=== PATIENT | female | born 1985 | race Caucasian/White ===

== ENCOUNTER 2022-04-12 08:12 | Emergency (ER) | payer OTHER, SELFPAY ==
--- NOTE | 2022-04-12 08:13 | ED.SKABFB ---
HPI - Skin/Abscess/Foreign Bdy General Chief complaint: Skin/Abscess/Foreign Body Stated complaint: Rash all over Time Seen by Provider: 04/12/22 08:13 Source: patient Mode of arrival: ambulatory Limitations: no limitations History of Present Illness HPI narrative: Angelika is a 36-year-old female patient presenting to the clinic today with complaints of rash all over her body. She reports the rash started approximately 3 days ago after being in a hot tub the night before. She contacted her PCP and they gave her a prescription for 50 mg of prednisone daily. She has taken 2 total doses and has not found any relief. She reports that it is itching and burning. She denies being out in the [place] or any other environmental changes with detergents or soaps. She denies any new foods or medications. She denies anyone in the family having this type of a rash. She denies any fever or chills Related Data Home Medications Medication Instructions Recorded Confirmed etonogestrel 0.12 mg-ethinyl 1 vag ring vaginal MONTHLY 04/12/22 04/12/22 estradiol 0.015 mg/24 hr vaginal ring (NuvaRing) Allergies Allergy/AdvReac Type Severity Reaction Status Date / Time No Known Allergies Allergy Verified 04/12/22 08:32 Review of Systems Review of Systems: Pertinent positives per HPI. Patient denies any fever, chills, headache, visual changes, dizziness, cough, runny nose, sore throat, shortness of breath, chest pain, palpitations, nausea, vomiting, diarrhea, constipation, abdominal pain, or any urinary issues. PMFSH Family History Family History Grandparent Cerebrovascular accident Family history of malignant neoplasm of stomach Family history of heart disease in male family member before age 55 Diabetes mellitus Other Family history of lung cancer Social History Social History Smoking end date: 11/05/03 Alcohol intake: current Comments At the time of my signature, I reviewed and agree with the nursing past medical, surgical, social, and family history. There is no relevant family history pertinent to the patient complaint. Exam Narrative: General: Well-developed, well nourished, in no apparent distress Head: Normocephalic, atraumatic. Cardio: Regular rate and rhythm, s1 and s2 normal, no murmur appreciated. Resp: Clear to auscultation bilaterally, no rhonchi, rales, wheezing or rubs. Integumentary: [place], warm, and dry, intact without lesion, red, raised, papular, pustular, itchy rash in her arms, neck, face/forehead, back and chest. Course Course Emergency Course: Portions of this record may have been created with voice recognition software. Level of Care: Express Care Visit Vital Signs Vital signs: Vital signs reviewed MDM - Skin/Abscess/Foreign Bdy MDM Narrative Medical decision making narrative: At the time of assessment patient is resting comfortably on the exam table. She has red raised papular pustular like rash around the hair follicles. She had been recently in a hot tub prior to this eruption. I suspect the patient has hot tub folliculitis and will treat with a prescription for Cipro and also doxycycline to cover any staph related infection. Supportive measures were discussed and patient voiced understanding of discharge instructions and agrees to treatment plan. Differential Diagnosis Differential diagnosis: Likely abscess of skin or subcutaneous tissue, viral exanthem, urticaria, cellulitis, eczema, insect bites, contact dermatitis and other (Folliculitis) Discharge Plan Discharge Clinical Impression: Folliculitis Patient Disposition: Home, Self-Care Condition: Stable Instructions: Antibiotic Form, Folliculitis (ED) Additional Instructions: Take doxycycline and Cipro as prescribed May eat 1 cup of yogurt daily 2 hours before or after taking the antibiotic
[2022-04-12 08:24] VITALS: BP 139/79; PULSE 79; RESP 16; TEMP 36.8; O2SAT 98
== END 2022-04-12 09:01 | disposition home or self-care (01) ==
PROVIDERS: Emergency Provider Nurse Practitioner Family; PCP Hospitalist
DX: L73.9 Follicular disorder, unspecified (principal); Z87.891 Personal history of nicotine dependence
CPT/HCPCS: 99203; G0463

== ENCOUNTER 2023-12-11 01:47 | Day surgery (SDC) | payer OTHER, SELFPAY ==
[2023-11-29 10:59] VITALS: BMI 30.5
--- NOTE | 2023-11-29 11:06 | PC.NURSE ---
Report to the Outpatient Waiting Room, entrance under the green pavilion located off [facility], at 0600 on 12-11-23. Planned Procedure Time: 0730. Time changes happen often and if your time is changed the preop area will call you the afternoon before. - You and your visitor will be asked to self-screen and do not enter if you have any COVID symptoms. - A mask is optional within the hospital at this time. Patients may have clear liquids (water, carbonated beverages, clear teas, apple juice) until 3 hours prior to surgery with a maximum of 20 ounces. 0430 - No food from midnight until time of surgery - Infants may have breast milk until 4 hours before surgery, formula 6 hours prior to surgery. - Children will be allowed to drink immediately following surgery. If applicable, please bring a bottle or sippy cup to assist with drinking. Juice, water, soda, and popsicles are readily available. For infants on formula, please bring formula the day of surgery. Pacifiers are allowed. Take the following medications with a SIP of water the morning of surgery: None DO NOT STOP ANY OF YOUR OTHER PRESCRIPTION MEDICATIONS PRIOR TO SURGERY ?EXCEPT THE FOLLOWING Medications to discontinue per physician: N/A Please no make-up, nail malay, hairspray, perfume, deodorant, or body powder the day of surgery. No jewelry (including any body piercings) or valuables the day of surgery, leave them at home. Please take a shower or bath the night before, or the morning of, surgery with an antibacterial soap. Wear comfortable, loose fitting clothing. Children are encouraged to wear pajamas. - Jewelry must be removed prior to entering the operating room. Rings and piercings that are not removed may be cut off. - The hospital will not accept responsibility for valuables. - Please leave all valuables, including medications, at home the day of surgery. If you are going home after surgery, a licensed recycler forklift driver truck driver must drive you home. - NO public transportation without another adult if you receive anesthesia. - We recommend that an adult stay with you for 24 hours following discharge. - We also recommend that you do not drive, make important decision, drink alcoholic beverages, or take any drugs that were not prescribed by your health care provider for at least 24 hours after your discharge time. For Pediatric surgeries, we recommend two adults accompany the child home. Follow any additional instructions given to you from your surgeon. If you or anyone in your household have experienced Covid symptoms in the past week, please notify your surgeon or the nurse liaison at the phone number below for possible testing. Telephone instructions given to Angelika Stinson and asked if any additional questions and then verbalized understanding. Patient advised to call surgeon office or pre surgery nurse liaison [phone] if any additional questions.
[2023-12-11] VITALS (7 sets, daily range): BP systolic 108–131; BP diastolic 75–85; PULSE 62–84; RESP 14–20; TEMP 36.2–36.8; O2SAT 100
[2023-12-11] MEDS: ACETAMINOPHEN 500 MG TABLET 1000 MG PO (06:30)
[2023-12-11] MEDS: LACTATED RINGERS 1,000 ML 30 ML IV CONT ×2 (06:30→09:01)
[2023-12-11] MEDS: SCOPOLAMINE 1 MG PATCH 1 PATCH TRANSDERM (06:30)
[2023-12-11] MEDS: KETOROLAC 15 MG/ML VIAL (*BKC) IV PUSH (06:30)
--- NOTE | 2023-12-11 06:34 | WPDANESEPPF ---
Anes - Initial Pre Proc Eval Procedure: Operation Date: 12/11/23 07:30 Proposed Procedures p Endocervical Curettage, Hysteroscopy with Pari Endometrial Ablation, Laparoscopic Bilateral Salpingectomy - Panda Cantor MD Date/Time: 12/11/23 06:34 Surgeon: Panda Cantor MD Pre Op Diagnosis: Lump of Cervix,Menorrhagia,Female Sterilization Patient Data Age: 38 Gender: F Height: 1.83 m Weight: 102.06 kg Allergies Allergy/AdvReac Type Severity Reaction Status Date / Time No Known Allergies Allergy Verified 11/29/23 10:36 Home Medications Medication Instructions Recorded Confirmed Type etonogestrel 0.12 mg-ethinyl 1 vag ring vaginal MONTHLY 04/12/22 11/29/23 History estradiol 0.015 mg/24 hr vaginal ring (NuvaRing) oseltamivir 75 mg capsule (Tamiflu) 75 mg PO DAILY 11/29/23 11/29/23 History Patient hx anesthesia problems: none Family hx anesthesia problems: none Results Review: All pre-operative results and documents have been reviewed as part of the pre-operative evaluation. [facility] Past Medical History Medical History (Updated 12/11/23 @ 06:36 by Taran Charles MD) Obesity Surgical History Surgical History (Updated 12/11/23 @ 06:36 by Taran Charles MD) H/O arthroscopic knee surgery Family History Family History Grandparent Cerebrovascular accident Family history of malignant neoplasm of stomach Family history of heart disease in male family member before age 55 Diabetes mellitus Other Family history of lung cancer Social History Social History Years smoked: 3 Smoking status: Former smoker Tobacco type: cigarettes Second hand tobacco smoke exposure: No Smoking end date: 11/05/03 Alcohol intake: current Alcohol use details: once a month maybe Substance use: never Substance use type: does not use Living arrangements: with family Spiritual care concerns: No Anes - Eval Final PreProcedure Day of Procedure 12/11/23 06:34 Patient weight: obese Heart: regular rate and rhythm Lungs: clear to auscultation Airway: Mallampati scale class 1 Neurological: alert and oriented Last oral intake: >/= 8 hours ASA classification: II Emergent: no Anesthetic plan: proceed Anesthesia type and monitoring: general ETT and standard monitoring Results Review: All pre-operative results and documents have been reviewed as part of the pre-operative evaluation. Informed Consent: The patient's anesthetic plan and its attendant risks and benefits were discussed with the patient/family/POA. Questions were solicited and answers provided to the satisfaction of the patient/family/POA.
--- NOTE | 2023-12-11 07:18 | PM.IMHP ---
H&P: HPI History of Present Illness Date/Time: 12/11/23 07:18 Chief Complaint: menorrhagia Narrative: this patient is a 38-year-old female with severe menorrhagia and possible endocervical lesion. We have agreed to perform hysteroscopy D&C with endometrial ablation, bilateral salpingectomy, possible resection of a cervical lesion. She understands the procedure. Is been explained to her in detail. She understands the risk. She understands that injuries may occur that resulted in hospitalization, more surgery, and severe illness. She understands risk of hemorrhage. She denies any nausea, vomiting, fever, chills. She denies any chest pain or shortness of breath. Review of Systems Review of Systems: All systems reviewed & are unremarkable except as noted in HPI and below Constitutional: Constitutional: Denies chills, Denies fatigue, Denies fever(s) and Denies weakness Eyes: Eyes: Denies blurry vision, Denies change in vision, Denies loss of peripheral vision, Denies loss of vision, Denies other visual disturbances and Denies eye pain ENT: Denies vertigo, Denies dizziness, Denies hearing loss, Denies mouth pain, Denies nasal obstruction, Denies neck mass and Denies neck pain Cardiovascular: Cardiovascular: Denies chest pain, Denies diaphoresis, Denies syncope, Denies leg edema and Denies dyspnea Respiratory: Respiratory: Denies chest congestion, Denies cough, Denies hemoptysis, Denies dyspnea and Denies wheezing Gastrointestinal: Gastrointestinal: Denies abdominal pain, Denies constipation, Denies diarrhea, Denies nausea and Denies vomiting Genitourinary: Genitourinary: Denies hematuria, Denies change in libido, Denies nocturia, Denies genital lesions, Denies flank pain and Denies urinary urgency Musculoskeletal: Musculoskeletal: Denies abnormal gait, Denies back pain, Denies myalgias, Denies arthralgias, Denies joint swelling, Denies muscle weakness and Denies neck pain Integumentary/Breasts: Skin/Breast: Denies swelling, Denies breast pain, Denies breast mass, Denies dry skin, Denies nipple discharge, Denies unusual bruising and Denies jaundice Neurologic: Denies Neuro-related abnormal movements, Denies Abnormal speech present, Denies abnormal gait, Denies behavioral changes, Denies confusion, Denies vertigo, Denies dizziness, Denies syncope, Denies loss of vision, Denies memory loss, Denies convulsions and Denies weakness Psychiatric: Psychiatric: Denies abnormal sleep pattern, Denies behavioral changes, Denies change in libido, Denies confusion, Denies depression, Denies anhedonia and Denies memory loss Endocrine: Endocrine: Reports no additional endocrine complaints, Denies change in libido and Denies fatigue Hematologic/Lymphatic: Hematologic/Lymphatic: Reports no additional hematologic/lymphatic complaints Allergic/Immunologic: Allergic/Immunologic: Reports no additional allergic/immunologic complaints and Denies wheezing PMFSH Past Medical History Medical History (Updated 12/11/23 @ 07:22 by Panda Cantor MD) Obesity Surgical History Surgical History (Updated 12/11/23 @ 06:36 by Taran Charles MD) H/O arthroscopic knee surgery Family History Family History Grandparent Cerebrovascular accident Family history of malignant neoplasm of stomach Family history of heart disease in male family member before age 55 Diabetes mellitus Other Family history of lung cancer Social History Social History Years smoked: 3 Smoking status: Former smoker Tobacco type: cigarettes Second hand tobacco smoke exposure: No Smoking end date: 11/05/03 Alcohol intake: current Alcohol use details: once a month maybe Substance use: never Substance use type: does not use Living arrangements: with family Spiritual care concerns: No Meds Home Medications and Allergies Home Medications
--- NOTE | 2023-12-11 07:23 | WPDHPUPDATE1 ---
History and Physical Update Update Date/Time: 12/11/23 07:23 History and Physical has been reviewed, including an updated exam of the patient. There are NO changes in the patient's condition. Risks, benefits, and alternatives have been discussed and questions answered. Patient agrees to proceed with procedure.
--- NOTE | 2023-12-11 09:07 | P.OP_ITS ---
Procedure Note - Detailed Date of Procedure 12/11/23 Pre-op Diagnosis Lump of Cervix,Menorrhagia,Female Sterilization Post-op Diagnosis Same Procedure Performed Laparoscopic bilateral salpingectomy with endometrial ablation and hysteroscopy. Surgeon Panda Cantor MD Anesthesia General Indications Menorrhagia, female sterilization Findings exceedingly soft uterus, mottled, irregular texture externally. Atrophic endometrium, fullness in the anterior endocervical canal of the proximal cervix. Description of Procedure Patient was taken the operating room. She has prepped draped in the dorsal lithotomy position after induction of general anesthesia. A 5 mm abdominal incision was made in left upper quadrant of the abdomen with scalpel. A 5 mm trocars inserted the intra-abdominal cavity under direct visualization of the scope. Pneumoperitoneum was achieved. A 5 mm periumbilical incision was made using a scalpel on the abdominal scan. A 5 mm trocar was inserted the intra- abdominal cavity under visualization of the scope. A 5 mm incision made left lower quadrant of the abdomen. A 5 mm trocar was inserted the intra-abdominal cavity and direct visualization of the scope. The bilateral fallopian tubes were removed. The paratubal tissue in the area of the uterus was grasped with the LigaSure cautery and transected after being cauterized. The paratubal tissue from the ovary to the uterine cornu was cauterized and transected with LigaSure cautery. This was all done in a bilateral fashion. The tube was transected at the area of the uterine cornua and the tubes was removed through the 5 mm trocar site. Our attention was then turned to the endometrial ablation portion of the procedure. A speculum was placed in the vagina. The cervix was grasped with a tenaculum. The cervix was dilated to approximately 8 mm with [place] dilators. The hysteroscope was inserted. And the below findings were noted. All of the intrauterine surfaces were curettaged with a medium-size curette and the specimens were collected. Measurements of the cervix were taken using the uterine sound and the hysteroscope. while taking measurements a uterine sound was easily, without resistance, pushed through the uterine fundus. Went back to the laparoscopic portion the procedure. Closed the defects in the uterus with 3-0 Vicryl. Return to the uterus gently placed a sound to collect measurements of the uterus and another perforation was made in fundus adjacent to the last 1. There was no resistance to the fundus of the uterus. It was very thin and very soft. The defect in the incision was cauterized laparoscopically. We terminated the procedure. The pneumoperitoneum was reduced on the abdomen. The trocars were removed. The skin was closed with subcuticular 4 Monocryl and covered with Dermabond. The patient was taken recovery room stable condition. Sponge lap and needle counts were correct x2. She tolerated the procedure well. Estimated Blood Loss 25 Pathology Yes Complications No immediate complications Condition Stable Disposition PACU
[2023-12-11] MEDS: ONDANSETRON INJ 4 MG/2 ML VIAL IV PUSH (10:18)
== END 2023-12-11 10:40 | disposition home or self-care (01) ==
PROVIDERS: PCP Hospitalist; Visit Provider Obstetrics & Gynecology
PROC: 0UDB8ZZ Extraction of Endometrium, Via Natural or Artificial Opening Endoscopic (ICD-10-PCS; CPT 58558; principal; 2023-12-11 07:30)
DX: N92.0 Excessive and frequent menstruation with regular cycle (principal); Z30.2 Encounter for sterilization; Z87.891 Personal history of nicotine dependence; E66.9 Obesity, unspecified; Z68.29 Body mass index [BMI] 29.0-29.9, adult
CPT/HCPCS: 58563; 58661; 88302; 88305; A9270; J0330; J1100; J1885; J2250; J2405; J2704; J3010; J7030; J7120

== ENCOUNTER 2024-01-10 08:41 | Outpatient (CLI) | payer OTHER, SELFPAY | END 2024-01-10 08:42 | disposition home or self-care (01) | LOC: ANHSURGERY 08:45 | PROVIDERS: PCP Hospitalist; Visit Provider Obstetrics & Gynecology | DX: N92.0 Excessive and frequent menstruation with regular cycle (principal); Z01.818 Encounter for other preprocedural examination | CPT/HCPCS: 36415; 86850; 86900; 86901 ==

== ENCOUNTER 2024-01-16 03:28 | Day surgery (SDC) | payer OTHER, SELFPAY ==
[2024-01-09 12:48] VITALS: BMI 29.8
--- NOTE | 2024-01-09 12:51 | PC.NURSE ---
Report to the Outpatient Waiting Room, entrance under the green pavilion located off [facility], at time 10:00 on date 01/16/24. Planned Procedure Time: 12:00. Time changes happen often and if your time is changed the preop area will call you the afternoon before. - You and your visitor will be asked to self-screen and do not enter if you have any COVID symptoms. - A mask is optional within the hospital at this time. Patients may have clear liquids (water, carbonated beverages, clear teas, apple juice) until 3 hours prior to surgery (9:00) with a maximum of 20 ounces. - No food from midnight until time of surgery Take the following medications with a SIP of water the morning of surgery: N/A DO NOT STOP ANY OF YOUR OTHER PRESCRIPTION MEDICATIONS PRIOR TO SURGERY ?EXCEPT THE FOLLOWING Medications to discontinue per physician: N/A Date to take last dose: N/A Please no make-up, nail british, hairspray, perfume, deodorant, or body powder the day of surgery. No jewelry (including any body piercings) or valuables the day of surgery, leave them at home. Please take a shower or bath the night before, or the morning of, surgery with an antibacterial soap. Wear comfortable, loose fitting clothing. - Jewelry must be removed prior to entering the operating room. Rings and piercings that are not removed may be cut off. - The hospital will not accept responsibility for valuables. - Please leave all valuables, including medications, at home the day of surgery. If you are going home after surgery, a licensed lease purchase truck driver must drive you home. - NO public transportation without another adult if you receive anesthesia. - We recommend that an adult stay with you for 24 hours following discharge. - We also recommend that you do not drive, make important decision, drink alcoholic beverages, or take any drugs that were not prescribed by your health care provider for at least 24 hours after your discharge time. Follow any additional instructions given to you from your surgeon. If you or anyone in your household have experienced Covid symptoms in the past week, please notify your surgeon or the nurse liaison at the phone number below for possible testing. Telephone instructions given to PT - SVITLANA IZAGUIRRE and asked if any additional questions and then verbalized understanding. Patient advised to call surgeon office or pre surgery nurse liaison [phone] if any additional questions.
[2024-01-16] VITALS (9 sets, daily range): BP systolic 104–128; BP diastolic 80–99; PULSE 68–85; RESP 12–18; TEMP 36.1–36.8; O2SAT 98–100
--- NOTE | 2024-01-16 08:19 | WPDANESEPPF ---
Anes - Initial Pre Proc Eval Procedure: Operation Date: 01/16/24 12:00 Proposed Procedures p Total Laparoscopic Hysterectomy - Panda Cantor MD Date/Time: 01/16/24 08:19 Surgeon: Panda Cantor MD Pre Op Diagnosis: menorrhagia Patient Data Age: 38 Gender: F Height: 1.83 m Weight: 99.8 kg Allergies Allergy/AdvReac Type Severity Reaction Status Date / Time No Known Allergies Allergy Verified 01/16/24 10:42 Home Medications Medication Instructions Recorded Confirmed Type No Home Medications 01/09/24 01/16/24 History Patient hx anesthesia problems: none Family hx anesthesia problems: none Results Review: All pre-operative results and documents have been reviewed as part of the pre-operative evaluation. 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 Alcohol intake: current Alcohol use details: once a month maybe Substance use: never Substance use type: does not use Living arrangements: with family Spiritual care concerns: No Anes - Eval Final PreProcedure Day of Procedure 01/16/24 08:19 Patient weight: overweight Heart: regular rate and rhythm Lungs: clear to auscultation Airway: Mallampati scale class II Neurological: alert and oriented Last oral intake: >/= 8 hours ASA classification: II Emergent: no Anesthetic plan: proceed Anesthesia type and monitoring: general ETT and standard monitoring Results Review: All pre-operative results and documents have been reviewed as part of the pre-operative evaluation. Informed Consent: The patient's anesthetic plan and its attendant risks and benefits were discussed with the patient/family/POA. Questions were solicited and answers provided to the satisfaction of the patient/family/POA.
[2024-01-16] MEDS: ACETAMINOPHEN 500 MG TABLET 1000 MG PO (10:30)
[2024-01-16] MEDS: LACTATED RINGERS 1,000 ML 30 ML IV CONT ×2 (10:30→15:35)
[2024-01-16] MEDS: KETOROLAC 15 MG/ML VIAL (*BKC) IV PUSH (10:30)
[2024-01-16] MEDS: SCOPOLAMINE 1 MG PATCH 1 PATCH TRANSDERM (10:41)
--- NOTE | 2024-01-16 12:56 | WPDHPUPDATE1 ---
History and Physical Update Update Date/Time: 01/16/24 12:56 History and Physical has been reviewed, including an updated exam of the patient. There are NO changes in the patient's condition. Risks, benefits, and alternatives have been discussed and questions answered. Patient agrees to proceed with procedure.
[2024-01-16] MEDS: ceFAZolin 2 GM/D5W 50 ML 2 GM/50 ML BAG IVPB (13:43)
[2024-01-16] MEDS: ceFAZolin SODIUM 1 GM VIAL (14:37)
[2024-01-16] MEDS: fentaNYL CITRATE INJ (*CRX) 100 MCG/2 ML VIAL 25 MCG IV PUSH ×4 (15:55→16:20)
--- NOTE | 2024-01-16 16:03 | P.OP_ITS ---
Procedure Note - Detailed Date of Procedure 01/16/24 Pre-op Diagnosis menorrhagia Post-op Diagnosis Same Procedure Performed total laparoscopic hysterectomy Surgeon Panda Cantor MD Anesthesia General Findings absent fallopian tubes, normal-appearing uterus and ovaries. Description of Procedure This patient was taken to the operating room. She was prepped and draped in the dorsal lithotomy position after induction of general anesthesia. The uterine manipulator and Ginny cup were placed. This was done with a speculum and tenaculum. The speculum was placed. The cervix was grasped with a tenaculum. The stay sutures were placed at 3 and 9:00 a.m.. The stay sutures of 0 Vicryl were brought through the appropriately sized Ginny cup. The tip of the MARILUZ manipulator was placed in the intrauterine cavity. The cup was slid into place around the cervix and into the fornices. It was locked into place. The sutures were then wrapped around the handle and tied under tension. A 5 mm skin incision was made in the left upper quadrant the abdomen. A 5 mm trocar was inserted into the intrauterine cavity under direct visualization of the scope. Pneumoperitoneum was achieved. A left lower quadrant 11 mm incision was made with scalpel. An 11 mm trocar was inserted into the anterior abdominal cavity under direct visualization the scope. A 5 mm infraumbilical incision was made with a scalpel and a 5 mm trocar was inserted the intra-abdominal cavity under direct visualization of the scope. Bilateral ureteral lysis was performed. This was done from the pelvic brim down to the uterine artery. This was done with careful dissection using sharp and blunt dissection. In a stepwise fashion, along the lateral aspects of the uterus the suspensory ligament of the ovary, round ligament and broad ligaments were cauterized transected down to the level of the uterine arteries. A bladder flap was created in the bladder was moved distally to the end of the cervix and over the Ginny cup. The bilateral uterine arteries were cauterized and transecte d. Colpotomy was then performed. In a circumferential fashion the vagina was transected using unipolar cautery. The incision was made down on the Ginny cup. when the colpotomy was completed, the uterus and cervix were taken out through the vagina. A pneumo occluder was placed in the vagina. The vaginal cuff was closed with a 0 V lock suture in a running fashion. The pelvis was irrigated with copious amounts antibiotic irrigation. The ureters were again examined and found to be intact and flowing freely under the uterine arteries into the bladder. The bladder was intact. It was examined directly. Cystoscopy was performed after administration of methylene blue. The cystoscope was inserted. Bladder was distended with fluid. The ureteric meatus was observed bilaterally. Blue fluid was seen to egress bilaterally. The bladder was drained and the cystoscope was withdrawn. The vagina was irrigated with Betadine solution after removal of the Pneumo occluder. The patient was taken to recovery room. She was stable condition. Sponge lap and needle counts were correct x2. Estimated Blood Loss 75 Drains Yes Packing No Pathology Yes Complications No immediate complications Condition Stable Disposition Floor
[2024-01-17] MEDS: IBUPROFEN 600 MG TABLET PO ×2 (02:25→09:07)
[2024-01-17 03:00] VITALS: BP 129/81; PULSE 58; RESP 16; TEMP 37.2; O2SAT 100; O2SAT 98
--- NOTE | 2024-01-17 08:15 | PM.GYNPNOP ---
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 - A/P Postoperative Procedures: Procedures Operation Date: 01/16/24 12:00 Actual Procedure Side Surgeon p Total Laparoscopic Hysterectomy Panda Cantor MD Postoperative day: 1 Postoperative status: doing well Postoperative plan: see orders Time Spent With Patient Time: Total time spent is greater than 50% in coordination of care (as documented) at patient's floor/unit and/or counseling patient: Time with patient: less than 15 minutes 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- PN:Subj Post-Op Subjective Date/time seen: 01/17/24 08:15 Subjective: patient reports feeling better, patient has no complaints and pain is well controlled Exam Const: General: healthy appearing, comfortable and no acute distress Resp: Auscultation: clear to auscultation bilaterally, no rales, no rhonchi and no wheezes Cardio: Rate: regular rate Heart sounds: no click, no murmurs and no rubs GI: Inspection: non-distended Auscultation: normal bowel sounds Extrem: General: normal to inspection, no pedal edema and no calf tenderness 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 - PN: Obj Data Vital Signs Vital Signs: Vital Signs - 24 hr 01/16/24 10:45 01/16/24 15:35 01/16/24 15:50 Temperature 97.3 F L 97.0 F L Pulse Rate 76 85 83 Respiratory Rate 16 15 12 Blood Pressure 122/99 H 128/82 122/80 Pulse Oximetry 98 100 98 Oxygen Delivery Room Air Simple Face Mask Room Air Oxygen Flow Rate 8 01/16/24 16:05 01/16/24 16:20 01/16/24 16:35 Temperature Pulse Rate 78 78 77 Respiratory Rate 14 18 18 Blood Pressure 122/80 115/83 104/89 Pulse Oximetry 98 98 99 Oxygen Delivery Room Air Room Air Room Air Oxygen Flow Rate 01/16/24 16:45 01/16/24 16:55 01/16/24 19:07 Temperature 98.0 F 98.2 F Pulse Rate 71 68 75 Respiratory Rate 14 18 12 Blood Pressure 122/87 116/93 H 120/89 Pulse Oximetry 98 100 100 Oxygen Delivery Room Air Oxygen Flow Rate 01/17/24 03:00 01/17/24 03:00 Temperature 98.9 F Pulse Rate 58 L 58 L Respiratory Rate 16 16 Blood Pressure 129/81 Pulse Oximetry 98 100 Oxygen Delivery Room Air Oxygen Flow Rate Intake/Output Intake/Output: Intake & Output 01/14/24 01/15/24 01/16/24 01/17/24 23:59 23:59 23:59 23:59 Intake Total 500 500 Output Total 400 1400 Balance 100 -900 Meds/Results Medications: Active Medications Generic Name Dose Route Start Last Admin Trade Name Freq PRN Reason Stop Dose Admin Hydrocodone Bitart/Acetaminophen 1 tab 01/16/24 16:45 Hydrocodone/Acetaminophen (*Crx) 5-325 Mg Tablet PO Q3H PRN Pain Rated 5 or Less Hydrocodone Bitart/Acetaminophen 1 tab 01/16/24 16:45 Hydrocodone/Acetaminophen (*Crx) 10-325 Mg Tablet PO Q3H PRN Pain Rated 6 or Greater Ibuprofen 600 mg 01/16/24 16:45 01/17/24 02:25 Ibuprofen 600 Mg Tablet PO 600 mg Q6H PRN Administration Cramping Ketorolac Tromethamine 30 mg 01/16/24 16:45 Ketorolac 30 Mg/Ml Vial (*Bkc) IV PUSH 01/21/24 16:44 Q6H PRN Pain Rated 4-6 Naloxone HCl 0.1 mg 01/16/24 16:45 Naloxone Hcl 0.4 Mg/Ml Vial IV PUSH Q2M PRN Respiratory rate less than 10 Ondansetron HCl 4 mg 01/16/24 16:45 Ondansetron Inj 4 Mg/2 Ml Vial IV PUSH Q6H PRN Nausea And Vomiting Simethicone 80 mg 01/16/24 17:00 01/16/24 19:32 Simethicone 80 Mg Tab.Chew PO Not Given TIDWM PATRICIO
--- NOTE | 2024-01-17 08:30 | WPDANESPN ---
Anes - Prog Note Post-Op Date/Time: 01/17/24 08:30 Vital Signs: Last Vital Signs Temp 37.2 C 01/17/24 03:00 Pulse 58 L 01/17/24 03:00 Resp 16 01/17/24 03:00 BP 129/81 01/17/24 03:00 Pulse Ox 100 01/17/24 03:00 O2 Del Method Room Air 01/17/24 03:00 O2 Flow Rate 8 01/16/24 15:35 Pain Score (VAS): 2 I/O: Intake & Output 01/16/24 01/17/24 01/17/24 23:59 07:59 15:59 Intake Total 500 500 Output Total 400 1400 Balance 100 -900 Patient Feedback: Patient satisfied with anesthetic care.
[2024-01-17 08:35] VITALS: BP 108/76; PULSE 81; RESP 16; TEMP 36.8; O2SAT 100
[2024-01-17] MEDS: SIMETHICONE 80 MG TAB.CHEW PO (09:08)
== END 2024-01-17 10:15 | disposition home or self-care (01) ==
LOC: ANHSURGERY 11:20 → ANHOB2 17:21
PROVIDERS: PCP Hospitalist; Visit Provider Obstetrics & Gynecology
PROC: 0UT9FZZ Resection of Uterus, Via Natural or Artificial Opening With Percutaneous Endoscopic Assistance (ICD-10-PCS; CPT 58570; principal; 2024-01-16 12:00)
DX: N92.0 Excessive and frequent menstruation with regular cycle (principal); N72 Inflammatory disease of cervix uteri; N85.8 Other specified noninflammatory disorders of uterus
CPT/HCPCS: 58570; 36415; 86850; 86900; 86901; 88307; 99199; A9270; J0690; J1100; J1170; J1885; J2250; J2405; J2704; J3010; J7030; J7120; Q9968

== ENCOUNTER 2024-06-24 08:38 | Outpatient (CLI) | payer OTHER, SELFPAY ==
--- NOTE | ~2024-06-24 | MMUS_ITS ---
EXAMINATION: MM diagnostic volodymyr BI w shivam, US breast BI complete HISTORY: Right breast pain TECHNIQUE: Additional 3-D tomosynthesis images of the breasts were performed and synthetic 2-D images were generated. CAD analysis was submitted and interpreted. High resolution complete bilateral breas t ultrasound was performed. COMPARISON: None BREAST PARENCHYMAL COMPOSITION: Dense: The breasts are heterogeneously dense, which may obscure small masses FINDINGS: MAMMOGRAPHIC FINDINGS: There are no suspicious masses, calcifications or architectural distortion in either breast to sugges t malignancy. There are benign appearing intramammary lymph nodes in the upper outer quadrants. ULTRASOUND: Complete US of all 4 quadrants of the breast/s and retroareolar region was reviewed. There are normal intramammary lymph nodes in the upper outer quadrant of both breasts. No suspicious masses, calcific ations or architectural distortion in either breast to suggest malignancy. IMPRESSION: 1. No evidence for malignancy in either breast. 2. Routine yearly screening mammogram and regular clinical breast examination are recommended. BI-RADS Category 2: Benign finding(s). Reviewed, dictated and finalized at location B. IMPRESSION: 1. No evidence for malignancy in either breast. 2. Routine yearly screening mammogram and regular clinical breast examination a re recommended. BI-RADS Category 2: Benign finding(s).
== END 2024-06-24 08:39 ==
PROVIDERS: PCP Hospitalist; Visit Provider Obstetrics & Gynecology
DX: N64.4 Mastodynia (principal)
CPT/HCPCS: 76641; 77062; 77066; G0279

== ENCOUNTER 2025-01-16 20:09 | Emergency (ER) | payer OTHER, SELFPAY ==
--- NOTE | ~2025-01-16 | XR_ITS ---
XR wrist LT min 3V Ordering provider: Eric Zaragoza MD History: . DOG BITE. PUNCTURE WOUNDS TO LEFT WRIST. PAIN. . Comparison: None. FINDINGS: BONES: Lucency is seen in the distal radius which may be a bony hole most likely due to the dog bite . Otherwise, No acute fracture or dislocation. No definite scaphoid fracture. JOINT SPACES: Well maintained. SOFT TISSUES: Normal. IMPRESSION: No acute osseous abnormality left wrist. Bony lucency involving the distal radius most likely due to the dog bite. Reviewed, dictated and finalized at location A.
--- NOTE | ~2025-01-16 | XR_ITS ---
XR hand RT min 3V Ordering provider: Eric Zaragoza MD History: . DOG BITE. PAIN BASE OF 1ST DIGIT AND MEDIAL R HAND. . Comparison: None. FINDINGS: BONES: No acute fracture or dislocation. JOINT SPACES: Normal. SOFT TISSUES: Normal. IMPRESSION: No acute osseous abnormality right hand. Reviewed, dictated and finalized at location A.
[2025-01-16 20:09] VITALS: BP 102/60; PULSE 72; RESP 18; TEMP 36.5; O2SAT 99
--- OUTSIDE RECORDS SUMMARY | 2025-01-16 20:11 | XMS_ITS | Patient Health Summary ---
Author Organization [facility] Address [address] [place] [address] Care Team Providers Care Commercial Carpenter Name Role Phone Unknown, Provider Primary Care Provider Unavaila ble Note from [facility],non-owned Affiliates and Associated Physician Practices is amultiple site organization consisting of ambulatory clinics and hospital sitesin [place], [place], [place] and [place]. This disclosure is being madepursuant to the Care Everywhere program and may not contain all information available regarding this patient. Last updated 18.[facility] Allergies No known active allergies Medications * Be aware that medications may not be up to date on this document. Alwaysverify current medications with the patient. * Etonogestrel-Ethinyl Estradiol (NUVARING VA) * fluticasone propionate (FLONASE) 50 MCG/ACT nasal spray(Started 09/19/2019) [place] 2 sprays into each nostril once daily Active Problems Problem Noted Date Diagnosed Date cardiac echogenic focus 08/28/2014 Encounter for supervision of other normal pregna ncy 08/28/2014 Social History Tobacco Use Types Packs/Day Years Used Date Smoking Tobacco: Never Smokeless Tobacco: Never Sex and Gender Information Value Date Recorded Sex Assigned at Not on file Gender Identity Not on file Sexual Orientation Not on file Last Filed Vital Signs Vital Sign Reading Time Taken Comments Blood Pressure 122/74 09/19/2019 10:20 AM PROCESS VALIDATION ENGINEER Pulse 84 09/19/2019 10:20 AM PROCESS VALIDATION ENGINEER Temperature 36.8 C (98.3 F) 09/19/2019 10:20 AM PROCESS VALIDATION ENGINEER Respiratory Rate 16 09/19/2019 10:20 AM PROCESS VALIDATION ENGINEER Oxygen Saturation 97% 09/19/2019 10:20 AM PROCESS VALIDATION ENGINEER Inhaled Oxygen Concentration - - Weight 77.1 kg (170 lb) 09/19/2019 10:20 AM PROCESS VALIDATION ENGINEER Height 182.9 cm (6') 09/19/2019 10:20 AM PROCESS VALIDATION ENGINEER Body Mass Index 23.06 09/19/2019 10:20 AM PROCESS VALIDATION ENGINEER Procedures * STREP A SCREEN - POINT OF CARE (AMB) STL(Performed 09/19/2019) Performed for Strep throat * MONONUCLEOSIS SCREEN - POINT OF CARE (AMB) STL(Performed 05/24/2019) Performed for Sore throat * STREP A SCREEN - POINT OF CARE (AMB) STL(Performed 05/24/2019) Performed for Sore throat * STREP A SCREEN - POINT OF CARE (AMB) STL(Performed 05/14/2019) Performed for Acute maxillary sinusitis, recurrence not specified * STREP A SCREEN - POINT OF CARE (AMB) STL(Performed 02/20/2018) Performed for Tonsillitis * CULTURE STREP GROUP A(Performed 08/27/2016) Performed for Acute pharyngitis, unspecified etiology * STREP A SCREEN - POINT OF CARE (AMB) STL(Performed 08/27/2016) Performed for Acute pharyngitis, unspecified etiology * SONOGRAM - COMPLETE(Performed 08/28/2014) Performed for Echogenic intracardiac focus of fetus on ultrasound Results * (ABNORMAL) STREP A SCREEN - POINT OF CARE (AMB) STL (09/19/2019) Only the most recent of5 resultswithin the time period is included. Pathologist [facility] Strep A Rapid POCT Positive(A) Negative Strep A Internal Control Present Lot # [id number] Expiration Date 12/05/2020 Throat ENTIRE THROAT (SURFACE REGION OF NECK) / Unknown 09/19/2019 Megan Restrepo [facility] - POINT O F CARE ORDERABLES * MONONUCLEOSIS SCREEN - POINT OF CARE (AMB) STL (05/24/2019) Pathologist [facility] Mononucleosis Screen POCT neg NEGATIVE Mayes Test Internal Control present Mayes Test Lot# [id number] Mayes Test Exp Date 04/04/20 Blood BLOOD SPECIMEN / Unknown 05/24/2019 Chad Betancourt VP PURCHASING-PSYCHIATRIC TECHNICIAN ASSISTANT LAB - POINT OF CARE ORDERABLES * CULTURE STREP GROUP A (08/27/2016 4:25 PM CDT) Beta-Strep Culture, Group A Only Negative [facility] INSURANCE BILL Microbiology ENTIRE THROAT (SURFACE REGION OF NECK) / Unknown 08/27/2016 4:25 PM CDT 08/28/2016 10:47 PM CDT Narrative Resulting Agency Comment [facility] [address] [id number] Kari Estrella VP PURCHASING-PSYCHIATRIC TECHNICIAN ASSISTANT LAB - MICROBIOL OGY ORDERABLES [facility] INSURANCE BILL [address] [place] [address] * SONOGRAM - COMPLETE (08/28/2014 2:54 PM CDT) Anatomical Region Laterality Modality Other 08/28/2014 2:54 PM CDT Narrative 08/28/2014 4:05 PM CDT [facility] PHONE: FAX: Pat. Name: ANGELIKA STINSON Pat. No: [id number] Study Date: 08/28/2014 2:54pm , Age: 07 1985, 29 Pregnancies: 2, Para 1 LMP: 03/29/2014 GA by LMP: 21w5d GA by US: 22w5d GA Selected: 21w5d (LMP) ORNNIE: 01/03/2015 Referring MD: JULIA PALMER MD Category Planner: Becca Hopper RDMS ICD9: 655.83 CPT4: 13137 Hist/Ind: Echogenic Focus MEASUREMENTS & AGE GROWTH EVALUATION Measurement GA Range Srce %for GA Ratios ----- ---- ------- BPD 5.5 cm 22w6d (14x4q-68f7w) Hadl BPD 79% FL/BPD 0.73 HC 20.8 cm 22w6d (90m0j-27t3n) Hadl HC 85% FL/AC 0.25 AC 16.1 cm 21w2d (80h2p-96o0j) Hadl AC 40% HC/AC 1.29 (1.05 - 1.24* FL 4.0 cm 23w0d (28f2h-04s4m) Hadl FL 82% CI 0.74 (0.70 - 0.86) HL 3.9 cm 23w4d (46n8r-38t7x) Ricci HL 82% GA for sonogram 22w5d (07n1x-04q5z) Weight Estimate: based on (HL,BPD,HC,AC,FL) Avg Weight: 479 gm (409-548) Hadlock : 1lbs, 0oz Normal: 455 gm (341-568) Hadlock Wt% 60% for 21w5d Heart Rate: 146 bpm CLINICAL SUMMARY Study Number: 1 A gonzalez fetus is identified in cephalic presentation. The measurements today are consistent with appropriate growth for RONNIE provided. The RONNIE selected is based on her LMP and a prior ultrasound examination. The amniotic fluid volume is within normal limits. The placenta is fundal. No major malformations are seen. An intracardiac echogenic focus was seen in the left ventricle. In the absence of other risk factors for aneuploidy, this isolated finding is not considered clinically significant. The patient was advised that ultrasound does not allow detection of all structural or chromosomal abnormalities. IMPRESSION: Gonzalez, live IUP at 21w5d Normal amniotic fluid volume. Appropriate growth. Placental location: Fundal No major malformations are seen today within the limitations of ultrasound. An echogenic focus is seen in the left ventricle, it is not clinically significant RECOMMEND: Follow up ultrasound as clinically indicated. Thank you for allowing us the opportunity to care for your patient.. Humberto Mccormack MD <Electronic Signature> 08/28/2014 04:05pm Julia Palmer MD [employer] ORDERABLES Care Teams Commercial Carpenter Relationship Specialty Start Date End Date Unknown, Provider PCP - General 08/27/16
--- OUTSIDE RECORDS SUMMARY | 2025-01-16 20:11 | XMS_ITS | Clinical Summary ---
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 Comments No Sex and Gender Information Value Date Recorded Sex Assigned at Not on file Legal Sex Female 12:02 AM CDT Gender Identity Not on file Sexual Orientation Not on file Last Filed Vital Signs Vital Sign Reading Time Taken Comments Blood Pressure 115/62 06/29/2017 1:16 PM CDT Pulse 69 06/29/2017 1:16 PM CDT Temperature 36.4 C (97.6 F) 06/29/2017 1:16 PM CDT Respiratory Rate 18 06/29/2017 1:16 PM CDT Oxygen Saturation 98% 06/29/2017 1:16 PM CDT Inhaled Oxygen Concentration - - Weight 85.7 kg (189 lb) 06/29/2017 1:16 PM CDT Height 182.9 cm (6') 06/29/2017 1:16 PM CDT Body Mass Index 25.63 06/29/2017 1:16 PM CDT Plan of Treatment Health Maintenance Due Date Last Done Comments Hepatitis C Virus (HCV) Screening 1985 TdaP Immunization 1984 Hepatitis B Immunization (1 of 3 - 19+ 3-dose series) 2003 Pap Smear 2005 Cervical Cancer Screening (CCS) 2014 HPV/Cotest 2014 Discussion re Starting/Frequ ency of Mammograms 2024 Influenza Immunization (#1) 2024 11/05/2008 SARS-COV-2 Immunization ( season) 2024 Respiratory Syncytial Virus (RSV) Immunization (Adult) (1 - 1-dose 75+ series) 2059 Meningococcal Immunization (ACWY) Aged Out No longer eligible based on patient's age to complete this topic Pneumococcal Immunization Combined Aged Out No longer eligible based on patient's age to complete this topic Rotavirus Immunization Aged Out No lo nger eligible based on patient's age to complete this topic
--- OUTSIDE RECORDS SUMMARY | 2025-01-16 20:11 | XMS_ITS | Data Portability ---
Author Organization [facility] Address [address] [place] [address] [place] [address] Care Team Providers Care Membership Counselor Name Role Phone JOSE ANTONIO LIND Primary Care Provider Assessment Encounter Date Assessment Date Assessment LastModified by Organization Details LastModified Time 05/30/2024 05/30/2024 Annual gynecological exam performed. Patient will come back in a year unless there are new symptoms. [email or web address] Not available 05/30/2024 09:33:58 Plan of Treatment Reminders Order Date Submit Date Provider Last Modified By Organization Details Last Modified Time Details Appointments None recorded. Lab None recorded. Referral None recorded. Procedures curettage, endocervica l (PROC) 2023 024 [id number] Nathen Cantor MD, [address], [place], [address], 4 14:12:23 Surgeries total laparoscopi c hysterectom y (SURG) 2023 024 [facility], [address], [address], 4 09:08:56 salpingecto my, laparoscopi c (SURG) 2023 024 [facility], [address], [address], 4 09:09:44 hysteroscop y, with endometrial ablation (SURG) 2023 024 [email or web address] [facility], [address], [place], [address], 4 12:27:09 Imaging MAMMO, diagnostic, digital, bilateral 2023 [facility], [address], [facility], [place], [address], 14:51:13 Medication Orders ondansetron 8 mg disintegrat ing tablet 2023 [id number], [address], [place], [place], [id number], 09:34:50 Patient TargetsNo targets recorded. Patient InstructionsNo instructions recorded. Reason for Referral None Reported. Results Created Date Observation Date Name Description Value Unit Range Abnormal Flag Note LastModifiedBy Organization Detail LastModifiedTime 10/26/20 23 10/26/2023 IMAGE GUIDE D PAP AND HPV REGAR DLESS image guided Pap, HPV regardless of Pap result SEE RESULT S BELOW abnormal CASE REPOR T: Cytol ogy Gynec ologi cornelio Repor t Case: [id number] Autho dina hopkins Provi larry: Jaspreet Kincaid Colle cted: 10/26 1544 HVAC INSTALLATION TECHNICIAN Order ing Locat ion: [place] Path[facility] Recei maddie: 10/30 1056 First Scree n: Shireen Calle ret, CT Patho logis t: Lew Armendariz MD Speci men: Scree tom Pap - Image d, Cervi x STATE MENT OF ADEQU ACY: Satis facto ry for evalu ation Trans forma tion zone compo nent prese nt FINAL DIAGN OSIS: Epith elial Cell Abnor malit y, Squam ous Cell: Atypi cornelio Squam ous Cells of Undet ermin ed Signi fican ce (ASC- US). Elect lou beltran ann d by Lew Armendariz MD on 11/01 at 2:47 PM ----- ----- ----- ----- ----- ----- ----- ----- ----- ----- ----- ----- ----- ----- ----- ----- ----- ---- HPV RESUL TS: HPV mRNA E6/E7 : No HPV mRNA Detec natalee NOTE: This high risk HPV mRNA assay detec ts fourt een high- risk HPV types (16, 18, 31, 33, 35, 39, 45, 51, 52, 56, 58, 59, 66, 68) witho ut diffe renti ation . COMME NT: This speci men was revie wed by a Cytot echno logis t and/o r Patho logis t (as indic ated in this repor t) after evalu ation using the Thinp rep Imagi ng Syste m. CLINI CORNELIO INFOR MATIO N: Menst rual Statu s: LMP (if appli cable ): Clini cornelio Histo ry/Pr eviou s Pap: Type of Neopl jocy (if appli cable ): Signi fican t Clini cornelio Findi ngs: Other Histo ry: Hormo salima (if appli cable ): TRU ABDULLAHI FOLLO W-UP: Follo w up as warra nted, based on curre nt guide lines and indiv idual patie nt consi derat ions. Not Available [facility] (Lab) [address] , [place], [address], 11/01/2023 15:50:37 10/26/20 23 10/26/2023 TRICH OMONA S VAGIN MICHELE (RRNA ) trichomonas vaginalis ribosomal RNA (rrna) Negati ve negati ve Not Available [facility] (Lab) [address] , [place], [address], 11/01/2023 15:50:37 10/26/20 23 10/26/2023 CT/GC (CRIS) , THINP REP VIAL chlamydia trachomatis, PCR Negati ve negati ve Not Available [facility] (Lab) [address], [place], [address], 11/01/2023 15:50:38 10/26/20 23 10/26/2023 CT/GC (CRIS) , THINP REP VIAL neisseria gonorrhoeae, PCR Negati ve negati ve Not Available [facility] (Lab) [address], [place], [address], 11/01/2023 15:50:38 11/01/20 23 11/01/2023 US, trans vagin al No observ ation record ed. [email or web address] [facility] [address], [place], [address], 11/01/2023 11:15:20 11/01/20 23 11/01/2023 US, trans vagin al No observ ation record ed. [email or web address] [facility] [address], [place], [address], 11/01/2023 23:01:12 06/24/20 24 06/24/2024 MAMMO , diagn ostic , digit al, bilat eral No observ ation record ed. KEVIN [facility] [address], [place], [address], 07/14/2024 04:02:24 06/24/20 24 06/24/2024 MAMMO , diagn ostic , digit al, bilat eral No observ ation record ed. [email or web address] [facility] [address], [place], [address], 06/26/2024 14:51:31 Result Notes None recorded. Problems Name Problem SNOMED Code Status Onset Date Resolution Date Notes Provider Name and Address Organization Details Recorded Time Syphilis test finding [id number] Completed 201806/22/2021 Encounter for STD screening ;Recorded Elsewhere : No [facility] Chron ic: N Practic e ID: 0001 Bill able Time: 08:30:00 AM BEE Estrella [facility] 12:53:59 Primigra aniyah [id number] Completed 201406/22/2021 Supervisi on of normal first ;Recorded Elsewhere : No [facility]ati [facility]: EHR Chron ic: N Practic e ID: 0001 Bill able Time: 09:00:00 AM Melissa [facility] 12:53:38 Infectio n screenin g Completed 201806/22/2021 Encounter for screening for oth infec/par astc diseases; Recorded Elsewhere : No [facility]ati [facility]: EHR Chron ic: N Practic e ID: 0001 Bill able Time: 01:00:00 PM Melissa Lin [facility] 12:52:[address] Concept Completed 201706/22/2021 Encntr for general adult medical exam w/o abnormal findings; Recorded Elsewhere : No [facility]ati [facility]: EHR Chron ic: N Practic e ID: 0001 Bill able Time: 08:30:00 AM Melissa Lin [facility] 12:53:52 Pregnanc y test negative [id number] Completed 201406/22/2021 examinati on or test, negative result;Re corded Elsewhere : No [facility]ati [facility]: EHR Chron ic: N Practic e ID: 0001 Bill able Time: 10:00:00 AM Melissa Lin [facility] 12:53:01 Infectio n by Aman mims [id number] Completed 201806/22/2021 Trichomon iasis, unspecifi ed;Record ed Elsewhere : No [facility]ati [facility]: EHR Chron ic: N Practic e ID: 0001 Bill able Time: 05:55:11 PM Melissa Lin [facility] 08/18/202 1 12:52:24 Educatio n Completed 201706/22/2021 Encounter for other general counselin g on contracep tion;Bharathi rded Elsewhere : No [facility]ati [facility]: EHR Chron ic: N Practic e ID: 0001 Bill able Time: 08:30:00 AM Melissa Lin [facility] 12:52:19 Micturit ion finding Completed 201706/22/2021 Urinary incontine nce;Recor ded Elsewhere : No [facility]ati [facility]: EHR Chron ic: N Practic e ID: 0001 Bill able Time: 08:30:00 AM Melissa Lin [facility] 12:52:[address] Concept Completed 201906/22/2021 Encntr for intervention teacher exam (general) (routine) w/o abn findings; Recorded Elsewhere : No [facility]ati [facility]: EHR Chron ic: N Practic e ID: 0001 Bill able Time: 08:30:00 AM Melissa Lin [facility] 12:53:54 Ultrason ography Completed 201306/22/2021 screening for malformat ion using ultrasoni cs;Record ed Elsewhere : No [facility]ati [facility]: EHR Chron ic: N Practic e ID: 0001 Bill able Time: 08:15:00 AM Melissa Lin [facility] 12:54:02 Antenata l screenin g Completed 201306/22/2021 screening for malformat ion using ultrasoni cs;Record ed Elsewhere : No [facility]ati [facility]: EHR Chron ic: N Practic e ID: 0001 Bill able Time: 08:15:00 AM Melissa Lin [facility] 12:51:50 Congenit al malforma tion [id number] Completed 201306/22/2021 screening for malformat ion using ultrasoni cs;Record ed Elsewhere : No [facility]ati [facility]: EHR Chron ic: N Practic e ID: 0001 Bill able Time: 08:15:00 AM Melissa Lin [facility] 1 12:52:15 Pregnanc y test positive [id number] Completed 201306/22/2021 examinati on or test, positive result;Re corded Elsewhere : No [facility]ati [facility]: EHR Chron ic: N Practic e ID: 0001 Bill able Time: 09:00:00 AM Melissa Lin [facility] 1 12:53:07 Procedur e on genitour inary system Completed 201406/22/2021 Steriliza tion;Bharathi rded Elsewhere : No [facility]ati [facility]: EHR Chron ic: N Practic e ID: 0001 Bill able Time: 03:00:00 PM Melissa Lin [facility] 1 12:53:43 Speciali zed medical examinat ion Completed 201306/22/2021 Other specified chlamydia l diseases; Recorded Elsewhere : No [facility]ati [facility]: EHR Chron ic: N Practic e ID: 0001 Bill able Time: 09:00:00 AM Melissa Lin [facility] 1 12:53:57 Vaginola bial hernia Completed 201806/22/2021 Other specified noninflam matory disorders of vagina;Re corded Elsewhere : No [facility]ati [facility]: EHR Chron ic: N Practic e ID: 0001 Bill able Time: 01:00:00 PM Melissa Lin [facility] 1 12:54:05 Contrace ptive sheath status [id number] Completed 201606/22/2021 IUD follow up;Record ed Elsewhere : No [facility]ati [facility]: EHR Chron ic: N Practic e ID: 0001 Bill able Time: 08:45:00 AM Melissa Lin [facility] 1 12:52:16 Clinical finding Completed 201506/22/2021 Presence of (intraute rine) contracep tive device;Re corded Elsewhere : No [facility]ati [facility]: EHR Chron ic: N Practic e ID: 0001 Bill able Time: 11:45:00 AM Melissa Lin [facility] 1 12:52:13 Adult health examinat ion Completed 201306/22/2021 ROUTINE MEDICAL EXAM;Bharathi rded Elsewhere : No [facility]ati [facility]: EHR Chron ic: N Practic e ID: 0001 Bill able Time: 09:00:00 AM Melissa Lin [facility] 1 12:51:46 Sexually transmit natalee infectio us disease [id number] Completed 201806/22/2021 STD;Recor ded Elsewhere : No [facility]ati [facility]: EHR Chron ic: N Practic e ID: 0001 Bill able Time: 01:00:00 PM Melissa acosta [facility] 1 12:53:49 Poor growth affectin g manageme nt [id number] Completed 201306/22/2021 Poor growth, affecting managemen t of mother, antepartu m condition or complicat ion;Recor ded Elsewhere : No [facility]ati [facility] EHR Chron ic: N Practic e ID: 0001 Bill able Time: 09:30:00 AM Melissa Lin [facility] 1 12:52:53 Speciali zed medical examinat ion Completed 201106/22/2021 Gynecolog ical Examinati on;Record ed Elsewhere : No [facility]ati [facility]: EHR Chron ic: N Practic e ID: 0001 Bill able Time: 08:30:00 AM Melissa Lin [facility] 1 12:53:56 Amenorrh ea [id number] Completed 201306/22/2021 Absence of menstruat ion;Recor ded Elsewhere : No [facility]ati [facility] EHR Chron ic: N Practic e ID: 0001 Bill able Time: 09:00:00 AM Melissa Lin [facility] 1 12:51:48 Pre-surg rachelle evaluati on Completed 201406/22/2021 Other specified pre-opera tive examinati on;Record ed Elsewhere : No [facility]ati [facility] EHR Chron ic: N Practic e ID: 0001 Bill able Time: 03:00:00 PM Melissa Lin [facility] 1 12:52:59 Urinary incontin ence [id number] Completed 201406/22/2021 Urinary incontine nce;Recor ded Elsewhere : No [facility]ati [facility] EHR Chron ic: N Practic e ID: 0001 Bill able Time: 08:30:00 AM Melissa Lin [facility] 1 12:54:04 Threaten ed miscarri age [id number] Completed 201306/22/2021 Threatene d , antepartu m;Recorde d Elsewhere : No [facility]ati [facility] EHR Chron ic: N Practic e ID: 0001 Bill able Time: 09:00:00 AM Melissa Lin [facility] 1 12:54:01 Insertio n of intraute rine contrace ptive device Completed 201506/22/2021 Encounter for insertion of intrauter ine contracep tive device;Re corded Elsewhere : No [facility]ati [facility] EHR Chron ic: N Practic e ID: 0001 Bill able Time: 11:45:00 AM Melissa Lin [facility] 12:52:28 Venereal disease screenin g Completed 201306/22/2021 Screening examinati on for venereal disease;R ecorded Elsewhere : No [facility]ati [facility]: EHR Chron ic: N Practic e ID: 0001 Bill able Time: 09:00:00 AM Melissa Lin [facility] 12:54:07 Screenin g for malignan t neoplasm of cervix Completed 201106/22/2021 Screening for malignant neoplasms of the cervix;Re corded Elsewhere : No [facility]ati [facility]: EHR Chron ic: N Practic e ID: 0001 Bill able Time: 08:30:00 AM Melissa Lin [facility] 12:53:45 Human papillom avirus deoxyrib onucleic acid detected , high risk on cervical specimen [id number] Completed 201906/22/2021 Cervical high risk HPV DNA test positive; Recorded Elsewhere : No [facility]ati [facility]: EHR Chron ic: N Practic e ID: 0001 Bill able Time: 10:00:00 AM Melissa Lin [facility] 12:52:23 Overweig ht [id number] Completed 201406/22/2021 Overweigh t;Recorde d Elsewhere : No [facility]ati [facility]: EHR Chron ic: N Practic e ID: 0001 Bill able Time: 08:30:00 AM Melissa Lin [facility] 12:52:51 Postpart um care Completed 201406/22/2021 Postpartu m follow-up ;Recorded Elsewhere : No [facility]ati [facility] EHR Chron ic: N Practic e ID: 0001 Bill able Time: 10:00:00 AM [facility] 1 12:52:55 Removal of intraute rine device Completed 201706/22/2021 Encounter for removal of intrauter ine contracep tive device;Re corded Elsewhere : No [facility]ati [facility]: EHR Chron ic: N Practic e ID: 0001 Bill able Time: 08:45:00 AM [facility] 1 12:53:40 Reproduc tive care manageme nt Completed 201606/22/2021 Enctr for pro mgmt and counselin g for gestation al carrier;R ecorded Elsewhere : No [facility]ati [facility] EHR Chron ic: N Practic e ID: 0001 Bill able Time: 02:30:00 PM [facility] 1 12:53:47 Breech presenta tion with antenata l problem [id number] Completed 201406/22/2021 Breech presentat ion without mention of version, antepartu m;Recorde d Elsewhere : No [facility]ati [facility] E[facility] Chron ic: N Practic e ID: 0001 Bill able Time: 02:00:00 PM [facility] 1 12:51:53 Breech malprese ntation successf ully converte d to cephalic presenta tion [id number] Completed 201406/22/2021 Breech or other malpresen tation successfu lly converted to cephalic presentat ion, antepartu m;Practic e ID: 0001 Melissa Lin [facility] 1 12:51:51 Delivery normal [id number] Completed 201406/22/2021 Normal delivery; Practice ID: 0001 Melissa Lin [facility] 1 12:52:18 Single live [id number] Completed 201406/22/2021 Mother with single liveborn; Practice ID: 0001 Melissa Lin [facility], [facility] 12:53:51 Educatio n Completed 201406/22/2021 Cuauhtemoc cramermen t;Practic e ID: 0001 Melissa Lin [facility], [facility] 12:52:21 Problem Notes None recorded. Procedures Surgical History Date Name Laterality Status Provider Name and Address Organization Details Recorded Time 01/16/20 24 TOTAL LAPAROSCOPIC HYSTERECTOMY (SURG) completed María [facility] 02/02/2024 09:08:56 12/11/19 24 SALPINGECTOMY, LAPAROSCOPIC (SURG) completed María [facility] 02/02/2024 09:09:44 01/19/20 23 LEEP completed Nathen Catnor MD [address], [place], [address], [facility] 01/18/2023 22:41:55 01/19/20 23 Colposcopy completed Brittnee Truong [facility] 10/26/2023 12:23:03 01/19/20 23 LEEP completed Lashaun Becerra [facility] 01/18/2023 12:10:38 12/21/19 23 Colposcopy completed Tamika Lora [facility]- [address], [place], [address], [facility] 12/21/2022 10:14:55 12/21/19 23 Colposcopy completed Melissa [facility] 12/21/2022 09:36:07 12/08/19 23 Date of Last Pap Smear completed Melissa [facility] 12/21/2022 09:35:14 12/14/19 22 Colposcopy completed Va Wyman CNM [address], [place], [address], [place] [facility] 12/14/2021 11:31:40 12/14/19 22 Colposcopy completed María Bhatt [facility] 12/14/2021 11:12:28 12/23/19 20 Colposcopy completed Melissa Lin [facility] 06/22/2021 13:04:10 11/05/19 12 extraction of wisdom tooth completed María Bhatt [facility] 12/08/2021 15:09:23 Imaging Results Imaging Date Name Status LastModified by Organization Details LastModified Time 11/01/2023 [email or web address] [address], [place], [address], 11/01/2023 11:15:20 11/01/2023 US, transvaginal completed [email or web address] [facility] [address], [place], [address], 11/01/2023 23:01:12 06/24/2024 MAMMO, diagnostic, digital, bilateral active KEVIN [facility] [address], [place], [address], 07/14/2024 04:02:24 06/24/2024 MAMMO, diagnostic, digital, bilateral completed [email or web address] [facility] [address], [place], [address], 06/26/2024 14:51:31 Procedure Notes None recorded. Medical Equipment None Reported. Allergies No known drug allergies Medications Name Sig Start Date Stop Date Status Note LastModified by Organization Details LastModified Time amoxicill in 500 mg capsule 12/08 completed Not Available Not Available Not Available Mirena 21 mcg/24 hr (up to 8 years) 52 mg intrauter ine device 09/23 completed Prescrib ed Elsewher e: Yes Loca tion: Mónica bob [facility] odify By: joel soto DateTime : 12/11/19 18 08:30:00 AM Not Available Not Available Not Available clindamyc in HCl 300 mg capsule TAKE 1 CAPSULE BY MOUTH EVERY 12 HOURS FOR 7 DAYS 12/14 completed Not Available Not Available Not Available benzonata te 200 mg capsule 01/06 completed Not Available Not Available Not Available ciproflox acin 500 mg tablet TAKE 1 TABLET BY MOUTH EVERY 12 HOURS FOR 7 DAYS 12/08 completed Not Available Not Available Not Available ondansetr on 8 mg disintegr ating tablet 05/30 completed Not Available Not Available Not Available oxycodone -acetamin ophen 5 mg-325 mg tablet 01/06 completed Not Available Not Available Not Available triamcino lone acetonide 0.025 % topical cream 12/21 completed Not Available Not Available Not Available Flagyl 500 mg tablet take all 4 tablets at one time 06/30 completed Prescrib ed Elsewher e: No Locat ion: Elian lisbeth [facility] odify By: joel Campo r DateTime : 05/29/20 04:41:18 PM Not Available Not Available Not Available doxycycli ne monohydra te 100 mg capsule TAKE 1 CAPSULE BY MOUTH TWICE DAILY FOR 7 DAYS 12/08 completed Not Available Not Available Not Available oseltamiv ir 75 mg capsule 01/06 completed Not Available Not Available Not Available prednison e 50 mg tablet 12/08 completed Not Available Not Available Not Available hydroxyzi ne HCl 25 mg tablet Take 2 tabs PO 2 hours prior to the procedur e and 1-2 tabs every 4-6 PRN for post op nausea. 05/25 completed Prescrib ed Elsewher e: No [facility] By: zoila siegel DateTime : 02/03/20 15 01:48:20 PM Not Available Not Available Not Available mirtazapi ne 15 mg tablet 11/24 completed Not Available Not Available Not Available diazepam 10 mg tablet Take 10mg PO 1-2 hours before the procedur e. 05/25 completed Prescrib ed Elsewher e: No Locat ion: Mónica bob [facility] odify By: zoila siegel DateTime : 02/03/20 01:48:20 PM Not Available Not Available Not Available ketorolac 60 mg/2 mL intramusc ular solution Pt to bring to office and will be given injectio n 30 minutes prior to the procedur e. 05/25 completed Prescrib ed Elsewher e: No Locat ion: Mónica bob [facility] odify By: zoila siegel DateTime : 02/03/20 01:48:20 PM Not Available Not Available Not Available fluticaso ne propionat e 50 mcg/actua tion nasal spray,earnest pension SHAKE LQ AND U 1 SPR IEN BID 11/24 completed Not Available Not Available Not Available Ortho Tri-Cycle n (28) 0.18 mg(7)/0.2 15 mg(7)/0.2 5 mg(7)-35 mcg tablet take 1 tablet by oral route every 28 days 11/28 completed Prescrib ed Elsewher e: No [facility] odify By: luis antonio holder DateTime : 05/25/20 08:30:00 AM Not Available Not Available Not Available amoxicill in 875 mg-potass ium clavulana te 125 mg tablet TAKE 1 TABLET BY MOUTH EVERY 12 HOURS 10/26 completed Not Available Not Available Not Available etonogest rel 0.12 mg-ethiny l estradiol 0.015 mg/24 hr vaginal ring INSERT 1 RING VAGINALL Y Q3WKS, SKIPPING PLACEBO WEEK, FOR CONTINUO US CYCLING. 01/06 completed Not Available Not Available Not Available mirtazapi ne 11/24 completed Not Available Not Available Not Available Triveen-D uo DHA 29 mg-1 mg-400 mg oral pack take 2 by Oral route once for 30 days 06/18 completed Prescrib ed Elsewher e: No [facility] By: tyoung E ncounter DateTime : 05/20/20 14 09:00:00 AM Not Available Not Available Not Available Vicodin 5 mg-300 mg tablet Take 2 tabs PO 2 hours before the procedur e and 1-2 tabs q 4-6 hours PRN for post op pain. 05/25 completed Prescrib ed Elsewher e: No Locat ion: Elian lisbeth [facility] odify By: zoila siegel DateTime : 02/03/20 15 01:48:20 PM Not Available Not Available Not Available Vitals Date Recorded Body height Body mass index (BMI) Body weight Systolic blood pressure Diastolic blood pressure Provider Name and Address Organization Details Last Updated DateTime 11/07/2023 182.88 cm 30.5 kg/m2 554147.2 8 g 130 mm[Hg] 89 mm[Hg] [facility] 4 17:42:00 Date Recorded Body height Body mass index (BMI) Body weight Systolic blood pressure Diastolic blood pressure Provider Name and Address Organization Details Last Updated DateTime 12/17/2023 182.88 cm 29.8 kg/m2 19812.32 g 130 mm[Hg] 92 mm[Hg] [facility] 4 12:28:05 Date Recorded Body height Body mass index (BMI) Body weight Systolic blood pressure Diastolic blood pressure Provider Name and Address Organization Details Last Updated DateTime 01/07/2024 182.88 cm 30 kg/m2 234627.9 1 g 119 mm[Hg] 82 mm[Hg] María Bhatt [facility] 4 10:12:37 Date Recorded Body height Body mass index (BMI) Body weight Systolic blood pressure Diastolic blood pressure Provider Name and Address Organization Details Last Updated DateTime 01/23/2024 182.88 cm 29.4 kg/m2 01944.54 g 137 mm[Hg] 90 mm[Hg] Kayce Cornelius [facility] 4 17:14:48 Date Recorded Body height Body mass index (BMI) Body weight Systolic blood pressure Diastolic blood pressure Provider Name and Address Organization Details Last Updated DateTime 05/30/2024 182.88 cm 26.8 kg/m2 80755.57 g 119 mm[Hg] 82 mm[Hg] Mae Dia [facility] 09:34:26 Social History Question Answer Notes LastModified by Organizat ion Details LastModified Time Tobacco Smoking Status Former Smoker Kayce Couch dave, [facility] 11/07/2023 17:16:34 Do You Have An Advance Directive? No Information n ot available 06/22/2021 What Is Your Level Of Alcohol Consumption? None Information not available 12/08/2022 If You Are , What Was Your Level Of Alcohol Consumption Prior To ? None [email or web address] Information not available 11/07/2023 Are You Blind Or Do You Have Difficulty Seeing? No Information n ot available 06/22/2021 What Is Your Level Of Caffeine Consumption? None Information not available 11/22/2020 How Much Tobacco Do You Chew? None Information not available 06/22/2021 In The 14 Days Before Symptom Onset, Have You Had Close Contact With A Laboratory-confirm ed COVID-19 While That Case Was Ill? No Information n ot available 06/22/2021 In The 14 Days Before Symptom Onset, Have You Had Close Contact With A Person Who Is Under Investigation For COVID-19 While That Person Was Ill? No Information not available 06/22/2021 Have You Been To An Area Known To Be High Risk For COVID-19? No Information not available 06/22/2021 Are You Deaf Or Do You Have Serious Difficulty Hearing? No Information not available 06/22/2021 What Type Of Diet Are You Following? REGULAR Information n ot available 06/22/2021 What Is The Highest Grade Or Level Of School You Have Completed Or The Highest Degree You Have Received? 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 5 Information not available 11/07/2023 On Those Days That You Engage In Moderate To Strenuous Exercise, How Many Minutes, On Average, Do You Exercise? 60 [email or web address] Information not available 11/07/2023 When Did You Quit Smoking? 11-15yearssi caitlin arevalo [email or web address] Information not available 11/07/2023 Are There Any Guns Present In Your Home? No Information not available 06/22/2021 Have You Ever Been Counseled For Unhealthy Alcohol Use? No [email or web address] Information not available 11/07/2023 Do You Use Protection During Sex? Always Information not available 12/08/2022 Do You Use Your Seat Belt Or Car Seat Routinely? Yes Information not available 06/22/2021 Do You Have Smoke And Carbon Monoxide Detectors In Your Home? Yes Information not available 06/22/2021 At What Age Did You Start Smoking Tobacco? 16 Information not available 06/22/2021 How Much Tobacco Do You Smoke? No Information not available 06/22/2021 Do You Feel Stressed (tense, Restless, Nervous, Or Anxious, Or Unable To Sleep At Night)? [id number] Information not available 12/08/2022 Do You Use Any Illicit Or Recreational Drugs? No Information not available 11/22/2020 Do You Use Sunscreen Routinely? No Information not available 06/22/2021 Has Tobacco Cessation Counseling Been Provided? No Information not available 11/07/2023 Have You Used IV Drugs? No Information not available 06/22/2021 Do You Or Have You Ever Used Any Other Forms Of Tobacco Or Nicotine? No [email or web address] Information not available 11/07/2023 Sex: Unknown Functional Status Question Answer Note LastModified by Organizat ion Details LastModified Time Do you have difficulty walking or climbing stairs? No [email or web address] Information not available 11/07/2023 Are you able to walk? YESWOREST Information not available 06/22/2021 Are you able to care for yourself? Yes Information not available 11/07/2023 Do you have difficulty dressing or bathing? No [email or web address] Information not available 11/07/2023 What is your exercise level? Moderate Information not available 11/22/2020 Mental Status None recorded. Family History Relationship Description Onset Age of this Age Resolved Age Notes LastModified by Organization Details LastModified Time Mother Cyst of ovary [email or web address] Not available 2023 09:17:25 Sister Cyst of ovary Not available 2023 09:17:25 Sister Malignant neoplasm of skin Not available 2023 09:17:25 Sister Asthma [email or web address] Not available 10/26/2023 12:13:03 Maternal Aunt Cyst of ovary [email or web address] Not available 2023 09:17:25 Maternal Uncle Carcinoma in situ of lung [email or web address] Not available 09:17:25 Paternal Grandmother Carcinoma in situ of lung [email or web address] Not available 09:17:25 Paternal Grandmother Congenital heart disease [email or web address] Not available 2023 09:17:25 Paternal Grandmother Diabetes mellitus [email or web address] Not available 10/26 12:13:03 Paternal Grandfather Carcinoma in situ of lung [email or web address] Not available 09:17:25 Paternal Grandfather Congenital heart disease [email or web address] Not available 2023 09:17:25 Paternal Grandfather Malignant neoplasm of skin [email or web address] Not available 2023 09:17:25 Paternal Grandfather Malignant tumor of stomach [email or web address] Not available 2023 09:17:25 Father Malignant neoplasm of skin [email or web address] Not available 2023 09:17:25 Medical History Condition Response Allergies (Food, seasonal, environmental ) Y Other N Breast Cancer N Drug/Latex Allergies/Reactions N Blood Transfusion N Dermatologic Disorders N Lung Disease N Defects or Inherited Disease N Breast Problem N Gestational Diabetes N Hematologic disorders N Anesthesia Complications N History of STI Y Deep Vein Thrombosis N Polycystic ovary syndrome N Anxiety Disorder N Autoimmune disease N Arthritis N Infertility N Polyps N Acid Reflux (GERD) N History of abnormal pap Y Cancer N Stroke N Varicosities N Neurologic/Epilepsy N Endometriosis N High Cholesterol N Headaches N Fibromyalgia N Kidney Disease N Heart Problems N Kidney or Bladder Problems N Thyroid Problems N GI Problems N Eating Disorder N Anemia N Art (IVF or FET) N Psychiatric Illness N Ovarian Cancer N Diabetes N Pulmonary (TB, Asthma) N Hepatitis/Liver Disease N No Past Medical History N Eczema N Urinary Tract Infection N Abuse/Domestic Violence N Asthma N Trauma/Violence N Depression/ depression N Heart Disease N Pre-Eclampsia N Hypertension N Osteoporosis N Thrombophilias N Gynecological History Statement/Question Response Abnormal Pap Yes Flow Moderate Date of LMP N On BCP's at Conception? N STIs/STDs Y Was last menstrual period normal Y HPV Vaccine N Colposcopy 01/18/2023 Duration of Flow (days) 4 Current Control Method Sterilizati on Age at First Child 26 Date of control 11/05/2022 Are cycles usually normal Y Sexually Active? N Menses Monthly N Age of first menstrual cycle 12 Date of Last Pap Smear 12/08/2022 Sexual Problems? N LMP Unknown Desired Control Method Hysterectom y N Obstetrics History GPAL:G 2 P 2 0 0 2 Type Value Full Term 2 Living 2 Total 2 Past Encounters Encounter ID Performer Location Encounter Start Date Encounter Closed Date Diagnosis/Indication Diagnosis SNOMED-CT Code Diagnosis ICD10 Code Diagnosis Note [id number] [facility] [address] [address] 11/22/2020 09:40:15 11/22/2020 10:17:59 Gynecologic examination 06706986 Z01.419 Take Calcium with Vitamin D 1200mg daily if not receiving in daily diet. It is strongly advised to have an annual flu shot and up can obtain at most pharmacies . If you have not had a TDap shot in the last 10 years you should obtain one as well. Discussed with patient & provided with informatio n regarding Gardisil vaccine to prevent the 4 strains for HPV that cause cervical cancer if under age 26. Encourage safe sexual practices, to use condoms and limit partners if not already in a monogamous relationsh ip. Do monthly self breast exams. Have mammogram yearly or every other year depending on family history. BRCA testing is now available for patients with strong genetic history of female cancer. If interested contact the office. Engage in daily exercise of low impact aerobic exercise 45-60 minutes 4-5 times weekly. Avoid tobacco and illicit drugs as well as using moderation with alcohol intake less than 1-2 8 oz beverages daily. This lifestyle behavior pattern will lead to less health conditions and longer life span. If BMI greater than 25 weight watchers or dietary consult advised. Patient received above instructio ns, and questions have been answered. If you have any questions please call or respond to this email. Patient was made aware of the patient portal and may obtain a paper copy of today's plan if desired. Pap Hx: Pap nl w/ +HPV 16 (11/2019) Colpo (11/2019) --cells present that are approachin g ALFREDO-1/LGSI L Pap/hpv repated this year. Monogamous >15yrs Declined std screening COunseled on HPV/Pap [id number] Tamika Lora [facility] [address],[facility] [place] [address] 06/22/2021 13:44:56 06/22/2021 14:18:47 Retained foreign body [id number] 45334 Z18.9 Her exam today was neg for a retained nuvaring.Hesham bob discussed restarting this device; and also leaving it in all 4wks vs q3wks & 1wk break.She will restart her device with next cycle; and will leave in x 4wks; if changes her mind and wants to replace q3wks call office so we can rewrite Rx for continous cycling changing device q3wks vs q4wks. No further questions. Time spent in visit is a total of 15 mins with at least 50% of visit consisting of counseling and review of plan of care.Addit ional precaution alon measures were taken to minimize potential exposure to the Covid-19 virus during this patient s visit, including available hand director appointment upon arrive, temperatur e check and being asked a series of screening questions. All staff wore face coverings during this encounter, as well as provided additional cleaning and sanitizing of all surfaces, including countertop s, pens, chairs, door handles, light switches, etc, prior to and following the patient s visit. [id number] Tamika Lora [facility] [address],[facility] [place] [address] 11/24/2021 09:25:44 11/24/2021 10:18:38 Gynecologic examination [id number] Z01.419 Take Calcium with Vitamin D 1200mg daily if not receiving in daily diet. It is strongly advised to have an annual flu shot and up can obtain at most pharmacies . If you have not had a TDap shot in the last 10 years you should obtain one as well. Discussed with patient & provided with informatio n regarding Gardisil vaccine to prevent the 4 strains for HPV that cause cervical cancer if under age 26. Encourage safe sexual practices, to use condoms and limit partners if not already in a monogamous relationsh ip. Do monthly self breast exams. Have mammogram yearly or every other year depending on family history. BRCA testing is now available for patients with strong genetic history of female cancer. If interested contact the office. Engage in daily exercise of low impact aerobic exercise 45-60 minutes 4-5 times weekly. Avoid tobacco and illicit drugs as well as using moderation with alcohol intake less than 1-2 8 oz beverages daily. This lifestyle behavior pattern will lead to less health conditions and longer life span. If BMI greater than 25 weight watchers or dietary consult advised. Patient received above instructio ns, and questions have been answered. If you have any questions please call or respond to this email. Patient was made aware of the patient portal and may obtain a paper copy of today's plan if desired.PC P visits UTD Pap Hx: Pap nl w/ +HPV 16 (11/2019) Colpo (11/2019) --cells present that are approachin g ALFREDO-1/LGSI LPap/hpv 2020 WNL Pap/hpv repated this year.STD sent Genetic screen discussed Contracept ion care management [id number] Z30.9 We discussed regimen's for nuvaring.S he is experienci ng some random vaginal spotting on continuous cycling of nuvaring.H er exam today shows a friable cervix.We agreed to await results of Pap/HPV/ST D screening. Possible this is simply inflammati on--if testing is neg for infection we discussed trial of Clindamyci n 300mg BID x 7 days to help with cervical inflammati on.If this issue continues we can also update TVUS & then Refer for MD consult if needed. Rx sent for Nuvaring place 1 device q3wks for continuous cycling. [id number] Va Wyman, LEFTY [facility] [address] [address] 12/14/2021 10:46:47 12/14/2021 12:34:20 Human papillomavirus deoxyribonucleic acid detected, high risk on cervical specimen [id number] R87.810 [id number] Tamika Lora , [facility] [address] [address] 12/08/2022 11:48:26 12/08/2022 12:10:50 Low grade squamous intraepithelial lesion on cervical Papanicolaou smear [id number] 9105 R87.612 R/P pap completed for this year. Gynecologi c examination 41857127 Z11.51 Z11.3 Take Calcium with Vitamin D 1200mg daily if not receiving in daily diet. It is strongly advised to have an annual flu shot and up can obtain at most pharmacies . If you have not had a TDap shot in the last 10 years you should obtain one as well. Discussed with patient & provided with informatio n regarding Gardisil vaccine to prevent the 4 strains for HPV that cause cervical cancer if under age 26. Encourage safe sexual practices, to use condoms and limit partners if not already in a monogamous relationsh ip. Do monthly self breast exams. Have mammogram yearly or every other year depending on family history. BRCA testing is now available for patients with strong genetic history of female cancer. If interested contact the office. Engage in daily exercise of low impact aerobic exercise 45-60 minutes 4-5 times weekly. Avoid tobacco and illicit drugs as well as using moderation with alcohol intake less than 1-2 8 oz beverages daily. This lifestyle behavior pattern will lead to less health conditions and longer life span. If BMI greater than 25 weight watchers or dietary consult advised. Patient received above instructio ns, and questions have been answered. If you have any questions please call or respond to this email. Patient was made aware of the patient portal and may obtain a paper copy of today's plan if desired.Pa p/hpv sent STD Screen declined Genetic Screen discussed Colon Screen na Dexa Screen na Routine Labs PCPMammo due age 39yo unless otherwise indicated Contracept ion care management [id number] Z30.9 Happy on this deviceRF sent x 1yr [id number] Tamika Lora [facility] [address],[facility] [place] [address] 12/21/2022 09:27:11 12/21/2022 11:03:50 Screening procedure 99048358 Z13.9 Human madison llomavirus deoxyribonucleic acid detected, high risk on cervical specimen 991443569 R87.810 See procedure notes.Post -procedure instructio ns reviewed with understand ing verbalized .Will contact with results & next steps in plan of care. Counseled on Pap/HPV guidelines /Testing/R esults with understand ing verbalized .All questions answered to patient satisfacti on. Booklet & additional resources regarding pap smear/HPV/ Pap results given. https://ww w.cancer.g ov/types/c ervical/un derstandin g-abnormal -hpv-and-p ap-test-re sults/unde rstanding- cervical-c hanges.pdf [id number] Nathen Cantor MD [facility] [address],[place] [address] 01/04/2023 10:15:44 01/05/2023 11:07:18 Dysplasia of cervix 61614448 N87.9 We discussed HPV, cervical dysplasia, cervical cancer. We discussed HPV transmissi on, natural history, and dormancy. We discussed cervical dysplasia screening, diagnosis, treatment. She was given precaution s about follow-up. She was warned of the potential cervical cancer as an outcome in this situation. We discussed LEEP procedure. We discussed the procedure in detail. I showed her video. We discussed the risks, benefits, and alternativ es. We spent 40 minutes face-to-fa ce.We will proceed with LEEP procedure. [id number] Nathen Cantor MD [facility] [address],[place] [address] 01/18/2023 11:42:27 01/19/2023 10:52:42 Pre-surgery testing 081026199 Z01.89 Dysplasia of cervix 7339 1008 N87.9 LEEP procedure was performed without complicati on. [id number] Nathen Cantor MD [facility] [address],[place] [address] 01/25/2023 09:24:58 01/26/2023 10:51:22 Abnormal vaginal bleeding 532042426 N93.9 37-year-ol d female with a a tendency to bleed heavily presents for follow-up after LEEP procedure. The follow-up is for bleeding. She has postproced ure bleeding. She was examined. The cervix appears normal. There is a lot of Monsel's on the cervix. The NuvaRing was on the cervix apparently in the cervix. We agreed to observe. Discussed results from the pathology report from the LEEP procedure. Keila hopkins results. [id number] [facility] [address] [address] 01/29/2023 14:50:40 01/29/2023 15:35:00 Abnormal uterine bleeding [id number] 9100 N93.9 [id number] Nathen Cantor MD [facility] [address] [address] 02/01/2023 11:47:38 02/02/2023 10:15:06 Non-menstrual vaginal bleeding 037770224 N93.9 37-year-ol d female presents for follow-up abnormal bleeding cervical bleeding. Her bleeding has resolved. Her pelvic ultrasound was normal. We talked about the circumstan ayde of her bleeding and likely etiologies . She will follow-up as needed. For now we will just observe. [id number] Tamika Lora [facility] [address] [address] 10/26/2023 12:12:24 10/26/2023 12:47:15 History of loop electrosurgical excision procedure [id number] 9102 Z98.890 F/U 6mos pap/hpv testing from post-LEEPS pecimen sentSTD sentExam appears wnl Abnormal u terine bleeding 6908103396 9100 N93.9 Continues to have issues with PCB/now random spotting that mainly happens at night; or with sex/maturb ation. We agreed to schedule updated TVUS/Consu lt with MD Dr. Cantor (might need EMBx but can discuss that with Dr. Cantor). Uses Nuvaring now Time spent in visit is a total of 22 mins with at least 50% of visit consisting of counseling and review of plan of care. [id number] Whitley Duran [facility] [address] [address] 11/01/2023 09:42:56 11/01/2023 10:25:32 Abnormal uterine bleeding 9566984595 9100 N93.9 [id number] Nathen Cantor MD [facility] [address] [address] 11/07/2023 17:16:14 11/08/2023 09:04:34 Dysplasia of cervix 87164157 N87.9 Lump of cervix 743419109 R19.09 Menorrhagia 190129683 N9 2.0 This patient is a 38 year-old female presents for heavy vaginal bleeding. She has longstandi ng very heavy bleeding. Her menses are regular. However, they require double protection . Patient has accidents, getting blood on her bedding and clothing. Is affected work. She changes a pad or tampon every hour. She leaks blood around the pad and tampon. This bleeding has a profound impact on her quality of life and her activities of daily living.we discussed treatment options in detail. We spent over 40 minutes face-to-fa ce. More than 50% was counseling . Talked about medical treatments . Talked about procedures and surgeries. Patient has failed medical treatment. She has been using the Evra patch for years and is heavy bleeding has developed while using the Evra patch. Made a decision to perform surgery. We agreed to laparoscop ic bilateral salpingect trudi and hysterosco py D&C with endometria l ablation. ECC will also be required for potential lesion at the superior aspect of the endocervix . We made a decision to perform surgery. Female sterilization 608 06419 Z30.2 [id number] Nathen Cantor MD [facility] [address] [address] 12/17/2023 12:15:06 12/17/2023 13:20:19 Menorrhagia 764848440 N92.0 patient is a 38-year-ol d female presents for menorrhagi a. She had a failed endometria l ablation. She has some irregulari ty to the uterus. Is exceedingl y soft. We discussed these findings and agreed to scheduled hysterecto my. We agreed to total laparoscop ic hysterecto my. I explained the procedure to her in details. a made a decision to perform surgery today. I explained the procedure to her in detail. I explained risk. She will return for preoperati ve visit and discussion of risk. [id number] Nathen Cantor MD [facility] [address] [address] 01/07/2024 09:44:21 01/07/2024 10:33:22 Menorrhagia 123123428 N92.0 38-year-ol d female who with severe menorrhagi a. We have agreed to perform total laparoscop ic hysterecto my. She understand s risks, benefits, and alternativ es. She has completed the informed consent process. We will proceed with total laparoscop ic hysterecto my. [id number] Nathen Cantor MD [facility] [address] [address] 01/23/2024 17:06:01 01/23/2024 17:56:02 Nausea and vomiting 68493061 R11.2 Postoperative care 36204 9007 Z48.89 38-year-ol d female who is 1 week postop from a total laparoscop ic hysterecto my bilateral salpingect trudi. She is recovering normally, although there is some we agreed to observe this. Her incisions are clean dry and intact. She was prescribed antiemetic s. She will contact us in 3-4 days if she persists in having nausea and dizziness. [id number] KAJAL ORTIZ MD [facility] [address] [address] 05/30/2024 09:16:43 05/30/2024 10:38:47 Pain of right breast 9319731241 N64.4 - worsening over the past month- no masses palpated on exam- will order diagnostic mammogram to evaluate- discussed evening primrose oil for mastalgia if mammogram normal Gynecologi c examination [id number] Z01.419 Well woman care- Cervical cancer screening: Pap smear not indicated (hx of hysterecto my with normal cervix on path)- Breast cancer screening: mammogram ordered as above- Colon cancer screening: does not qualify- HPV immunizati on: declined- STD testing: declined- hereditary cancer screening: does not qualify for testing Health Concerns Section Related Observation LastModified by Organization Detai ls LastModified Time None Recorded Concern Status LastModified by Organization Details LastModified Time None Recorded Advance Directives Directive N: Payers Encounter Date Sequence Insurance Name Policy Number Policy Cornell Covered Member ID Cornell Member ID Guarantor Name 11/07/2023 1 [facility] [id number] Angelika Milad [id number] Angelika [place] 12/17/2023 1 [facility] [id number] Angelika [place] [id number] Angelika Milad 01/07/2024 1 [facility] [id number] Angelika [place] [id number] Angelika [place] 01/23/2024 1 [facility] [id number] Angelika Milad [id number] Angelika Milad 05/30/2024 1 [facility] [id number] Angelika Milad [id number] Angelika Milad Notes Date Note Type Note Provider Name and Address Organization Details Recorded Time 11/07/2023 text/html This patient is a 38 year-old female presents for heavy vaginal bleeding. She has longstanding very heavy bleeding. Her menses are regular. However, they require double protection. Patient has accidents, getting blood on her bedding and clothing. Is affected work. She changes a pad or tampon every hour. She leaks blood around the pad and tampon. This bleeding has a profound impact on her quality of life and her activities of daily living.we discussed treatment options in detail. We spent over 40 minutes [id number]. More than 50% was counseling. Talked about medical treatments. Talked about procedures and surgeries. Patient has failed medical treatment. She has been using the Evra patch for years and is heavy bleeding has developed while using the Evra patch. Made a decision to perform surgery. We agreed to laparoscopic bilateral salpingectomy and hysteroscopy with endometrial ablation. Nathen Cantor MD [address], [place], [address], [facility] 11/07/2023 23:37:35 12/17/2023 text/html patient is a 38-year-old female presents for menorrhagia. She had a failed endometrial ablation. She has some irregularity to the uterus. Is exceedingly soft. We discussed these findings and agreed to scheduled hysterectomy. We agreed to total laparoscopic hysterectomy. I explained the procedure to her in details. a made a decision to perform surgery today. I explained the procedure to her in detail. I explained risk. She will return for preoperative visit and discussion of risk. Nathen Cantor MD [address], [place], [address], [facility] 12/17/2023 13:00:46 01/07/2024 text/html this patient is a 38-year-old female with severe menorrhagia. We have agreed to perform total laparoscopic hysterectomy. The patient understands the procedure. The procedure was described to the patient in great detail. the patient also understands the risks. The risks were also explained in detail. She understands that injuries May occur during surgery. She understands these injuries can result in hospitalization, more surgery, and severe illness. She understands there is risk of hemorrhage and infection. Nathen Cantor MD [address], [place], [address], [facility] 01/07/2024 10:33:18 01/23/2024 text/html 38-year-old femrick yeung who is 1 week postop from a total laparoscopic hysterectomy bilateral salpingectomy. She is recovering normally, although there is some we agreed to observe this. Her incisions are clean dry and intact. She was prescribed antiemetics. She will contact us in 3-4 days if she persists in having nausea and dizziness. Nathen Cantor MD [address], [place], [address], [facility] 01/23/2024 17:43:00 05/30/2024 text/html Presents today f or her annual well-woman exam. Denies abnormal vaginal discharge. She is sexually active and denies dyspareunia. She is using hysterectomy for contraception. She has not noticed any changes or masses in her breasts. Having pain in right breast that has been worsening for the past month. No pain in left breast. No nipple discharge or lumps. No family hx of cancer. KAJAL ORTIZ MD [address], [place], [address], [facility] 05/30/2024 10:38:41 OBGyn Episode Ob Episode Information Episode Created Date Number of Fetuses Patient Bloodtype Patient rh Status Prepregnancy Weight lbs Domestic Partner Domestic Partner Phone Father Name Body Design Checker Status 11/20/19 21 1 CLOSED Fetus Data First Name Last Name Admitted to NICU Weight (g) Sex Living Outcome Pediatric Complications Fetus ID Race Codes Race Delivery Type 3203.26 [id number] F Full Term 7169 Vaginal Delivery Stef Calculation Initial Stef Date Initial Exam Date Initial Exam Provider Initial Ultrasound Date Last Menstrual Period Date Ultra Sound Weeks Gestation 0 Eighteen To Twenty Week Stef Update Ultra Sound Date Fundal Height At Umbil Quickening Date Ultra Sound Latest Weeks Gestation Final Stef Confirmed By Final Stef Confirmed Date Final Stef Date Ultra Sound Latest Days Gestation 0 0 Menstrual History Last Menstrual Date Menses Monthly On Bcp Conception Prior Menses Frequency Hcg Plus Date Menarche Onset Age Delivery Information Delivery Date Delivery Type Labor Anesthesia Weeks Gestation Incision Type Labor Labor Length Hrs Delivered By Post Complications Tubal Sterilization Discharge Date Comments 5 39.6 Discharge Information Feeding Method Contraceptive Method Maternal HG B and HCT Levels Ob Episode Information Episode Created Date Number of Fetuses Patient Bloodtype Patient rh Status Prepregnancy Weight lbs Domestic Partner Domestic Partner Phone Father Name Body Design Checker Status 11/20/19 1 CLOSED Fetus Data First Name Last Name Admitted to NICU Weight (g) Sex Living Outcome Pediatric Complications Fetus ID Race Codes Race Delivery Type 3883.65 [id number] M Full Term 7170 Vaginal Delivery Stef Calculation Initial Stef Date Initial Exam Date Initial Exam Provider Initial Ultrasound Date Last Menstrual Period Date Ultra Sound Weeks Gestation 0 Eighteen To Twenty Week Stef Update Ultra Sound Date Fundal Height At Umbil Quickening Date Ultra Sound Latest Weeks Gestation Final Stef Confirmed By Final Stef Confirmed Date Final Stef Date Ultra Sound Latest Days Gestation 0 0 Menstrual History Last Menstrual Date Menses Monthly On Bcp Conception Prior Menses Frequency Hcg Plus Date Menarche Onset Age Delivery Information Delivery Date Delivery Type Labor Anesthesia Weeks Gestation Incision Type Labor Labor Length Hrs Delivered By Post Complications Tubal Sterilization Discharge Date Comments 0 39 Discharge Information Feeding Method Contraceptive Method Maternal HG B and HCT Levels
--- OUTSIDE RECORDS SUMMARY | 2025-01-16 20:11 | XMS_ITS | Clinical Summary ---
Author Organization [facility] Address [address] [place] [address] Care Team Providers Care Gun Perforator Loader Name Role Phone Unknown, Provider Primary Care Provider Unavaila ble Source Comments [facility],non-owned Affiliates and Associated Physician Practices is amultiple site organization consisting of ambulatory clinics and hospital sitesin [place], [place], [place] and [place]. This disclosure is being madepursuant to the Care Everywhere program and may not contain all information available regarding this patient. Last updated 18.[facility] Allergies No known active allergies Medications * Be aware that medications may not be up to date on this document. Alwaysverify current medications with the patient. Medication Sig Dispensed Refills Start Date End Date Status Etonogestrel-Ethinyl Estradiol (NUVARING VA) Active fluticasone propionate (FLONASE) 50 MCG/ACT nasal spray Roll 2 sprays into each nostril once daily 16 g 09/19/2019 Active Active Problems Patient Care Coordination No te Formatting of this note migh t be different from the original. No genetic lab work Problem Noted Date Diagnosed Date cardiac echogenic focus 08/28/2014 Encounter for supervision of other normal pregna ncy 08/28/2014 Overview (09/12/2015): Social History Tobacco Use Types Packs/Day Years Used Date Smoking Tobacco: Never Smokeless Tobacco: Never Sex and Gender Information Value Date Recorded Sex Assigned at Not on file Gender Identity Not on file Sexual Orientation Not on file Last Filed Vital Signs Vital Sign Reading Time Taken Comments Blood Pressure 122/74 09/19/2019 10:20 AM DIRECTOR ELECTRONICS Pulse 84 09/19/2019 10:20 AM DIRECTOR ELECTRONICS Temperature 36.8 C (98.3 F) 09/19/2019 10:20 AM DIRECTOR ELECTRONICS Respiratory Rate 16 09/19/2019 10:20 AM DIRECTOR ELECTRONICS Oxygen Saturation 97% 09/19/2019 10:20 AM DIRECTOR ELECTRONICS Inhaled Oxygen Concentration - - Weight 77.1 kg (170 lb) 09/19/2019 10:20 AM DIRECTOR ELECTRONICS Height 182.9 cm (6') 09/19/2019 10:20 AM DIRECTOR ELECTRONICS Body Mass Index 23.06 09/19/2019 10:20 AM DIRECTOR ELECTRONICS Plan of Treatment Health Maintenance Due Date Last Done Comments LIPID TESTING 1984 MAMMOGRAM 1984 PAP SMEAR 1984 HIV SCREENING 1999 HEPATITIS C SCREENING 05/24/2002 DTAP/TDAP/TD VACCINES (1 - Tdap) 2003 HEPATITIS B VACCINE (1 of 3 - 19+ 3-dose series) 2003 COVID-19 VACCINE (2023-2 5 season) 2024 INFLUENZA VACCINE (#1) 2024 11/05/2008 DEPRESSION SCREENING 11/05/2024 ZOSTER VACCINE (1 of 2) 2034 HIB VACCINE Aged Out No longer eligi ble based on patient's age to complete this topic HPV VACCINE Aged Out No longer eligi ble based on patient's age to complete this topic MENINGOCOCCAL (Group B) VACC INE SHARED DECISION-MAKING Aged Out No longer eligibl e based on patient's age to complete this topic MENINGOCOCCAL GROUPS A/C/Y/W VACCINE Aged Out No longer eligible b ased on patient's age to complete this topic PNEUMOCOCCAL VACCINE Aged Out No long er eligible based on patient's age to complete this topic Care Teams Gun Perforator Loader Relationship Specialty Start Date End Date Unknown, Provider PCP - General 08/27/16
--- OUTSIDE RECORDS SUMMARY | 2025-01-16 20:11 | XMS_ITS | Referral Summary ---
Author Organization [facility] Address [address] [place] [address] Care Team Providers Care Director Child Name Role Phone Unknown, Provider Primary Care Provider Unavaila ble Source Comments [facility],non-owned Affiliates and Associated Physician Practices is amultiple site organization consisting of ambulatory clinics and hospital sitesin [place], [place], [place] and [place]. This disclosure is being madepursuant to the Care Everywhere program and may not contain all information available regarding this patient. Last updated 18.[facility] Allergies No known active allergies Medications * Be aware that medications may not be up to date on this document. Alwaysverify current medications with the patient. Medication Sig Dispensed Refills Start Date End Date Status Etonogestrel-Ethinyl Estradiol (NUVARING VA) Active fluticasone propionate (FLONASE) 50 MCG/ACT nasal spray [place] 2 sprays into each nostril once daily [...] Comments Blood Pressure 122/74 09/19/2019 10:20 AM SCALE ASSEMBLY SET UP WORKER Pulse 84 09/19/2019 10:20 AM SCALE ASSEMBLY SET UP WORKER Temperature 36.8 C (98.3 F) 09/19/2019 10:20 AM SCALE ASSEMBLY SET UP WORKER Respiratory Rate 16 09/19/2019 10:20 AM SCALE ASSEMBLY SET UP WORKER Oxygen Saturation 97% 09/19/2019 10:20 AM SCALE ASSEMBLY SET UP WORKER Inhaled Oxygen Concentration - - Weight 77.1 kg (170 lb) 09/19/2019 10:20 AM SCALE ASSEMBLY SET UP WORKER Height 182.9 cm (6') 09/19/2019 10:20 AM SCALE ASSEMBLY SET UP WORKER Body Mass Index 23.06 09/19/2019 10:20 AM SCALE ASSEMBLY SET UP WORKER Plan of Treatment Not on file Care Teams Director Child Relationship Specialty Start Date End Date Unknown, Provider PCP - General 08/27/16
--- OUTSIDE RECORDS SUMMARY | 2025-01-16 20:11 | XMS_ITS | Clinical Summary ---
Author Organization [facility] Address [address] [place] [address] Care Team Providers Care Intensive Care Anaesthetist Name Role Phone Arturo Andujar MD Primary Care Provider [phone] Allergies No known active allergies Medications NUVARING 0.12-0.015 mg/24 hr vaginal ring 3 8 Active permethrin (NIX) 1 % liquid Leave on hair for 10 minutes, then rinse; repeat on Day 9 118 mL 1 3 Active Additional Information Patient not taking.Reported on 08/08/2023 amoxicillin-cla vulanate (AUGMENTIN) 875-125 mg per tablet Take 1 tablet by mouth every 12 (twelve) hours 14 tablet 3 Active Additional Information Patient not taking.Reported on 11/27/2023 benzonatate (TESSALON) 200 mg capsuleIndicati ons:Influenza A Take 1 capsule (200 mg total) by mouth 3 (three) times a day as needed for cough 42 capsule 4 Active Active Problems Problem Noted Date Diagnosed Date Annual physical exam 07/27/2020 Assessment & Plan (07/27/2020 10:43 AM CDT): Perform routine labs today Generalized anxiety disorder 07/27/2020 Assessment & Plan (08/26/2020 8:19 AM CDT): Improved control of anxiety and nervousness while at work, and improve sleep at night Patient feels that medication is giving her enough response that she does not want increased does Agree the patient at same doses in order to reduce side Assessment & Plan (07/27/2020 10:44 AM CDT): Patient reports worsening anxiety over the past 1.5 years Patient is interested in medical treatment today due to worsening symptoms Will give trial of mirtazapine today, for insomnia in for decreased GI side effects Return in 4 weeks to evaluate response to therapy Frequent headaches 11/12/2018 Assessment & Plan (07/27/2020 10:42 AM CDT): Unknown cause of chronic daily headache Patient reports no impact to daily routine Will evaluate if treatment of atopic rhinitis increased headaches 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 Overview (11/12/2018): Overview: On MRI Assessment & Plan (12/12/2022 2:51 PM MANAGER TRANSIT): Unclear etiology; patient reports reason CC of right-sided headaches for the past 2-3 months, change in quality over prior migraine headaches, headaches or daily with limited relief with ibuprofen or migraine medication Weight is no vision changes Given history of pineal cyst, will get MRI for further evaluation Atopic rhinitis 11/11/2009 Overview (02/09/2017): Allergic Rhinitis NOS Assessment & Plan (07/27/2020 10:41 AM CDT): Per patient remained is all year, not seasonal No known allergens worsen rhinorrhea Enlarged turbinates on exam right worse than left Will give trial of Flonase and to evaluate for improvement Resolved Problems Problem Noted Date Diagnosed Date Resolved Date cardiac echogenic focus 08/28/2014 11/12/2018 Immunizations Immunization Administration Dates Next Due Influenza, Trivalent, IM (MDV) 11/05/2008 Influenza, Trivalent, Preser vative Free, Intramuscular 08/20/2014 Influenza, Unspecified 12/06/2022(Deferr ed: Patient Refused),07/06/2022(Deferred: Patient Refused),08/26/2020(Deferred: Patient Refused),07/27/2020(Deferred: Patient Refused),11/05/2019(Deferred: Patient Refused),11/05/2019(Deferred: Patient Refused) Td, adsorbed 11/05/2004 Tdap 10/09/2014,09/24/2014 Surgical History Surgery Date Site/Laterality Comments KNEE ARTHROSCOPY Arthroscopy knee Family History Medical History Relation Name Comments Hypertension Father Hypertension; Other Father Alive and well; Lung cancer Maternal Grandfather Cancer, lung; Stroke Maternal Grandfather Stroke; Other Mother Alive and well; Diabetes type II Paternal Grandmother Gracie betes mellitus type 2; Stomach cancer Paternal Grandmother cance r, gastric; Stroke Paternal Grandmother Stroke; Thyroid disease Sister Relation Name Status Comments Father Alive Maternal Grandfather Alive Mother Alive Paternal Grandmother Alive Sister Alive Social History Tobacco Use Types Packs/Day Years Used Date Smoking Tobacco: Former Cigarettes Smokeless Tobacco: Never Tobacco Cessation:Counseling Given: Not Answered Alcohol Use Standard Drinks/Week Comments Yes 0 (1 standard drink = 0.6 oz pur e alcohol) 1 time month AUDIT-C Answer Date Recorded Q1: How often do you have a drink containing alc ohol? Monthly or less 12/06/2022 Q2: How many drinks containi ng alcohol do you have on a typical day when you are drinking? 1 or 2 12/06/2022 Frequency of Binge Drinking Not on file 11/2022 PHQ-2 Answer Date Recorded PHQ-2 Total Score (If total score is 3 or more points, staff should administer the PHQ-9) 0 12/06/2022 Exercise Vital Sign Answer Date Recorde d On average, how many days pe r week do you engage in moderate to strenuous exercise (like a brisk walk)? 3 days 12/06/2022 On average, how many minutes do you engage in exercise at this level? 30 min 12/06/2022 Comments Unknown Sex and Gender Information Value Date Recorded Sex Assigned at Not on file Legal Sex Female 11:40 AM MANAGER TRANSIT Gender Identity Not on file Sexual Orientation Not on file Obstetrics History Last Filed Vital Signs Vital Sign Reading Time Taken Comments Blood Pressure 102/72 11/27/2023 9:53 AM MANAGER TRANSIT Pulse 92 11/27/2023 9:53 AM MANAGER TRANSIT Temperature 36.6 C (97.8 F) 11/27/2023 9:53 AM MANAGER TRANSIT Respiratory Rate 18 11/27/2023 9:53 AM MANAGER TRANSIT Oxygen Saturation 98% 11/27/2023 9:53 AM MANAGER TRANSIT Inhaled Oxygen Concentration - - Weight 100.2 kg (221 lb) 11/27/2023 9:53 AM MANAGER TRANSIT Height 182.9 cm (6') 11/27/2023 9:53 AM MANAGER TRANSIT Body Mass Index 29.97 11/27/2023 9:53 AM MANAGER TRANSIT Plan of Treatment Health Maintenance Due Date Last Done Comments Breast Cancer Screening-Mammogram 1984 Hepatitis C Screening 1984 Varicella Vaccines (1 of 2 - 13+ 2-dose series) 1997 Hepatitis B Screening 2002 Cervical Cancer Screening 09/23/2019 09/23/2018 Regular Well Visit/Exam 18-64 11/12/2019 11/12/2018 Depression Screening 12/06/2023 12/06/2022, 08/26/2020, 07/27/2020, Additional history exists DTaP/Tdap/Td Vaccine (3 - Td or Tdap) 10/09/2024 10/09/2014, 09/24/2014, 11/05/2004 Influenza Vaccine Discontinued 08/20/2014, 11/05/2008 HPV Vaccines Aged Out No longer eligi ble based on patient's age to complete this topic Pneumococcal vaccine <65 Aged Out No longer eligible based on patient's age to complete this topic Procedures Procedure Name Priority Date/Time Associated Diagnosis Comments PAP SMEAR WITH HPV Routine 09/23/2018 from Last 3 Months or Most Recently Relevant to Health Maintenance Results * PAP SMEAR WITH HPV (09/23/2018) Pap smear Normal Historical Provider HEALTH MAINTENANCE Final Result from Last 3 Months or Most Recently Relevant to Health Maintenance Insurance [facility] CHOICE PLUS [facility] H[facility]/PPO Address: [address] [place] [address] [facility] PLUS [facility]O [place] [address] Care Teams Intensive Care Anaesthetist Relationship Specialty Start Date End Date Arturo Andujar MD [facility] [place] [place] [address] PCP - General 07/27/20
--- OUTSIDE RECORDS SUMMARY | 2025-01-16 20:11 | XMS_ITS | Referral Summary ---
Author Organization [facility] Address [address] [place] [address] Care Team Providers Care Mechanical Shovel Operator Name Role Phone Arturo Andujar MD Primary Care Provider [phone] Allergies No known active allergies Medications NUVARING [...] MRI Assessment & Plan (12/12/2022 2:51 PM INFANTRYMAN): Unclear etiology; patient reports reason CC of [...] Patient Refused) Td, adsorbed 11/05/2004 Tdap 10/09/2014,09/24/2014 Social History Tobacco Use Types Packs/Day Years [...] on file Legal Sex Female 11:40 AM INFANTRYMAN Gender Identity Not on file Sexual Orientation Not on file Last Filed Vital Signs Vital Sign Reading Time Taken Comments Blood Pressure 102/72 11/27/2023 9:53 AM INFANTRYMAN Pulse 92 11/27/2023 9:53 AM INFANTRYMAN Temperature 36.6 C (97.8 F) 11/27/2023 9:53 AM INFANTRYMAN Respiratory Rate 18 11/27/2023 9:53 AM INFANTRYMAN Oxygen Saturation 98% 11/27/2023 9:53 AM INFANTRYMAN Inhaled Oxygen Concentration - - Weight 100.2 kg (221 lb) 11/27/2023 9:53 AM INFANTRYMAN Height 182.9 cm (6') 11/27/2023 9:53 AM INFANTRYMAN Body Mass Index 29.97 11/27/2023 9:53 AM INFANTRYMAN Plan of Treatment Not on file Procedures Procedure Name Priority Date/Time Associated Diagnosis Comments HM PAP SMEAR WITH HPV Routine 09/23/2018 from Last 3 Months or Most Recently Relevant to Health Maintenance Results * HM PAP SMEAR WITH HPV (09/23/2018) Pap smear Normal Historical Provider HEALTH MAINTENANCE Final Result from Last 3 Months or Most Recently Relevant to Health Maintenance Insurance [facility] CHO[facility] PL[facility] CHO[facility] PL[facility] Care Teams Mechanical Shovel Operator Relationship Specialty Start Date End Date Arturo [place] [address] PCP - General 07/27/20
--- NOTE | 2025-01-16 20:14 | ED.ANIMALBIT ---
HPI - Animal Bite General Chief Complaint: Animal Bite Stated Complaint: dog bite Time Seen by Provider: 01/16/25 20:13 Source: patient Mode of arrival: ambulatory Limitations: no limitations History of Present Illness HPI narrative: This is a 39-year-old female, with no significant past medical history, presents to the emergency department after suffering a dog bite to the left wrist and right hand. The patient states the dog is owned by a neighbor and is reportedly up-to-date on all vaccinations. She was the left wrist hand. She denies other injury or loss of consciousness. She complains of moderate sharp pain. Related Data Allergies Allergy/AdvReac Type Severity Reaction Status Date / Time No Known Allergies Allergy Verified 07/09/24 08:30 Review of Systems Review of Systems: All systems reviewed & are unremarkable except as noted in HPI and below PMFSH Past Medical History Medical History No significant past medical history Surgical History Surgical History History of hysterectomy H/O arthroscopic knee surgery Family History Family History Grandparent Cerebrovascular accident Family history of malignant neoplasm of stomach Family history of heart disease in male family member before age 55 Diabetes mellitus Other Family history of lung cancer Social History Social History Years smoked: 3 Smoking status: Former smoker Tobacco type: cigarettes Second hand tobacco smoke exposure: No Smoking end date: 11/05/03 Additional smoking assessment comments: ONLY A TEENAGER Alcohol intake: current Alcohol use details: once a month maybe Substance use: never Substance use type: does not use Do You Feel Safe in your Home?: Yes Lack of Transportation: No Lack of Food: Never True Current Housing: I Have Housing Concerned About Future Housing: No Difficulty Paying Gas/Electric Bills: No Difficulty Paying for Meds: No Currently Unemployed: YES Education: Bachelor's Degree Difficulty w/ Childcare or Family Care: No Living arrangements: with family Occupation/Education: occupation 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 HEAD: Normocephalic, atraumatic. EYES: PERRLA and EOMI. CHEST: Clear to auscultation. No respiratory distress. No wheezes rales or rhonchi HEART: Regular rate and rhythm. No murmur heard. Normal peripheral pulses. EXTREMITIES: There is a 1 cm laceration of the left wrist at the dorsal aspect, just proximal to the radial styloid. There is a 0.5 cm puncture wound noted over the ventral, radial aspect of the right wrist and a 3 mm puncture wound noted to the ventral, ulnar aspect of the right wrist. There is no exposed tendon or bone. There is a shallow laceration of the ulnar aspect of the right thumb without involvement of the dermis or exposed bone/tendon. Normal range of motion of all extremities. No edema. SKIN: Warm, dry, no rash. NEURO: Alert and oriented x3. No focal deficit. Moving all 4 limbs spontaneously. Sensation intact bilaterally PSYCH: Normal mood and affect. Course Course Emergency Course: 20:42 - My review of the patient's left wrist x-ray and right hand x-rays not concerning for fracture, dislocation or retained foreign object. The patient was given a tetanus vaccination. The largest wound at the dorsal aspect of the left wrist was closed loosely with Steri-Strips. The remaining injuries are not amenable to repair though were irrigated and dressed with Xeroform gauze. Will discharge with Augmentin and pain medications. I advised the patient on wound care. I discussed the findings and recommendations with The patient. Discussed return and emergency precautions including signs/symptoms of wound infection, septic arthritis and neurovascular compromise. The patient voiced understanding and agreement with the plan. All questions answered to her satisfaction. Procedures Laceration Laceration 1: Date: 01/16/25 Time: 20:38 Site: upper extremity (wrist) Side (If applicable): left Size (cm): 1 Description: linear Depth: simple, single layer Local Anesthetic: none Pre-repair: wound explored and irrigated ====== Skin Level ====== Skin layer closed with: steri strips (3, loosely approximated) ====== Subcutaneous Layer ====== ====== Muscle Layer ====== ====== Tendon Layer ====== Dressing: Non-adherent gauze MDM - Animal Bite MDM Narrative Medical decision making narrative: plan: Imaging, pain control, tetanus vaccination, oral antibiotics, wound care, reassess Differential Diagnosis Differential diagnosis: Likely dog bite and other ( fracture, retained foreign object, laceration, other) Discharge Plan Discharge Clinical Impression: Dog bite of left wrist, Laceration of left wrist, Dog bite of right thumb, Acute pain of left wrist, Hand pain, right Patient Disposition: Home, Self-Care Condition: Stable Instructions: Antibiotic Form, Animal Bite (ED), Steristrips (ED) Additional Instructions: You were seen in the emergency department. Your x-rays are not concerning for fracture retained foreign object. Your given a tetanus shot. The largest wound was closed loosely with Steri-Strips. I recommend a course of oral antibiotics and follow-up with your primary care doctor. If you develop rapidly spreading redness with increasing pain, drainage of pus and fevers, the hand/ fingers appear blue/cold or if you have other emergent concerns for life, limb, or eyesight, return to the emergency department. Patient Language: Greek Prescriptions: New amoxicillin-pot clavulanate 875-125 mg tablet 1 tablet PO Q12H 7 Days Qty: 14 0RF hydrocodone-acetaminophen 5-325 mg tablet 1 tablet PO Q12H PRN (Reason: pain, severe) Qty: 8 0RF Triple Antibiotic 3.5-400-5,000 [id number] ointment in packet 1 applic topical TID 7 Days Qty: 144 0RF No Action methylprednisolone [Medrol (Yovany)] 4 mg tablets,dose pack See Rx Instructions PO PER PKG DIR Qty: 21 0RF Rx Instructions: PO PER PKG DIR Follow-up/Referrals: Lisha Ellis APRN [Primary Care Provider] - 1 Week ( For wound re-evaluation) Time of Disposition: 20:44
--- OUTSIDE RECORDS SUMMARY | 2025-01-16 20:34 | XMS_ITS | Clinical Summary ---
Author Organization [facility] Medical Office Building [address] Address [address] [place] [address] Care Team Providers Care Merchandising Professor Name Role Phone Arturo Andujar MD Primary Care Provider [phone] Allergies No known active allergies Medications NUVARING [...] MRI Assessment & Plan (12/12/2022 2:51 PM INTERACTIVE PRODUCER): Unclear etiology; patient reports reason CC of [...] on file Legal Sex Female 11:40 AM INTERACTIVE PRODUCER Gender Identity Not on file Sexual Orientation Not on file Obstetrics History Last Filed Vital Signs Vital Sign Reading Time Taken Comments Blood Pressure 102/72 11/27/2023 9:53 AM INTERACTIVE PRODUCER Pulse 92 11/27/2023 9:53 AM INTERACTIVE PRODUCER Temperature 36.6 C (97.8 F) 11/27/2023 9:53 AM INTERACTIVE PRODUCER Respiratory Rate 18 11/27/2023 9:53 AM INTERACTIVE PRODUCER Oxygen Saturation 98% 11/27/2023 9:53 AM INTERACTIVE PRODUCER Inhaled Oxygen Concentration - - Weight 100.2 kg (221 lb) 11/27/2023 9:53 AM INTERACTIVE PRODUCER Height 182.9 cm (6') 11/27/2023 9:53 AM INTERACTIVE PRODUCER Body Mass Index 29.97 11/27/2023 9:53 AM INTERACTIVE PRODUCER Plan of Treatment Health Maintenance Due Date [...] Most Recently Relevant to Health Maintenance Insurance [facility] PL[facility] Care Teams Merchandising Professor Relationship Specialty Start Date End Date Arturo Andujar MD [facility] [place] [place] [address] PCP - General 07/27/20
--- OUTSIDE RECORDS SUMMARY | 2025-01-16 20:34 | XMS_ITS | Clinical Summary ---
Author Organization [facility] [employer] Address [address] [place] [address] Care Team Providers Care Dial Lathe Operator Name Role Phone Unknown, Provider Primary Care Provider Unavaila ble Source Comments [facility] [employer],non-owned Affiliates and Associated Physician Practices is amultiple site organization consisting of ambulatory clinics and hospital sitesin [place], [place], [place] and [place]. This disclosure is being madepursuant to the Care Everywhere program and may not contain all information available regarding this patient. Last updated 18.[facility] [employer] Allergies No known active allergies Medications * Be aware that medications may not be up to date on this document. Alwaysverify current medications with the patient. Medication Sig Dispensed Refills Start Date End Date Status Etonogestrel-Ethinyl Estradiol (NUVARING VA) Active fluticasone propionate (FLONASE) 50 MCG/ACT nasal spray [place] 2 sprays into each nostril once daily [...] Comments Blood Pressure 122/74 09/19/2019 10:20 AM DOCUMENTATION SUPERVISOR Pulse 84 09/19/2019 10:20 AM DOCUMENTATION SUPERVISOR Temperature 36.8 C (98.3 F) 09/19/2019 10:20 AM DOCUMENTATION SUPERVISOR Respiratory Rate 16 09/19/2019 10:20 AM DOCUMENTATION SUPERVISOR Oxygen Saturation 97% 09/19/2019 10:20 AM DOCUMENTATION SUPERVISOR Inhaled Oxygen Concentration - - Weight 77.1 kg (170 lb) 09/19/2019 10:20 AM DOCUMENTATION SUPERVISOR Height 182.9 cm (6') 09/19/2019 10:20 AM DOCUMENTATION SUPERVISOR Body Mass Index 23.06 09/19/2019 10:20 AM DOCUMENTATION SUPERVISOR Plan of Treatment Health Maintenance Due Date [...] age to complete this topic Care Teams Dial Lathe Operator Relationship Specialty Start Date End Date Unknown, Provider PCP - General 08/27/16
--- OUTSIDE RECORDS SUMMARY | 2025-01-16 20:34 | XMS_ITS | Clinical Summary ---
Author Organization [facility] Address [address] [place] [address] Phone Care Team Providers Care Geophysical Support Specialist Name Role Phone Unavailable Primary Care Provider [...]
--- OUTSIDE RECORDS SUMMARY | 2025-01-16 20:34 | XMS_ITS | Patient Health Summary ---
Author Organization [facility] [employer] Address [address] [place] [address] Care Team Providers Care Coffee Grower Name Role Phone Unknown, Provider Primary Care Provider Unavaila ble Note from [facility] [employer] [facility],non-owned Affiliates and Associated Physician Practices is amultiple site organization consisting of ambulatory clinics and hospital sitesin [place], [place], [place] and [place]. This disclosure is being madepursuant to the Care Everywhere program and may not contain all information available regarding this patient. Last updated 18.[facility] [employer] Allergies No known active allergies Medications * Be aware that medications may not be up to date on this document. Alwaysverify current medications with the patient. * Etonogestrel-Ethinyl Estradiol (NUVARING VA) * fluticasone propionate (FLONASE) 50 MCG/ACT nasal spray(Started 09/19/2019) [place] 2 sprays into each nostril once daily [...] Comments Blood Pressure 122/74 09/19/2019 10:20 AM RESTAURANT ASSISTANT Pulse 84 09/19/2019 10:20 AM RESTAURANT ASSISTANT Temperature 36.8 C (98.3 F) 09/19/2019 10:20 AM RESTAURANT ASSISTANT Respiratory Rate 16 09/19/2019 10:20 AM RESTAURANT ASSISTANT Oxygen Saturation 97% 09/19/2019 10:20 AM RESTAURANT ASSISTANT Inhaled Oxygen Concentration - - Weight 77.1 kg (170 lb) 09/19/2019 10:20 AM RESTAURANT ASSISTANT Height 182.9 cm (6') 09/19/2019 10:20 AM RESTAURANT ASSISTANT Body Mass Index 23.06 09/19/2019 10:20 AM RESTAURANT ASSISTANT Procedures * STREP A SCREEN - POINT [...] resultswithin the time period is included. Pathologist [facility] Strep A Rapid POCT Positive(A) Negative Strep A Internal Control Present Lot # [id number] Expiration Date 12/05/2020 Throat ENTIRE THROAT (SURFACE REGION OF NECK) / Unknown 09/19/2019 Megan Restrepo [facility] - POINT O F CARE ORDERABLES * MONONUCLEOSIS SCREEN - POINT OF CARE (AMB) STL (05/24/2019) Pathologist [facility] Mononucleosis Screen POCT neg NEGATIVE [facility] Test Internal Control present [facility] Test Lot# [id number] [facility] Test Exp Date 04/04/20 Blood BLOOD SPECIMEN / Unknown 05/24/2019 Chad Betancourt [employer]EL[employer] CASTING MODEL MAKER APPRENTICE-GUEST SERVICE AIDE LAB - POINT OF CARE ORDERABLES * CULTURE STREP GROUP A (08/27/2016 4:25 PM CDT) Beta-Strep Culture, Group A Only Negative [facility] INSURANCE BILL Microbiology ENTIRE THROAT (SURFACE REGION OF NECK) / Unknown 08/27/2016 4:25 PM CDT 08/28/2016 10:47 PM CDT Narrative Resulting Agency Comment [facility] [address] [id number] Kari Estrella JEWELRY CASTING MODEL MAKER APPRENTICE-GUEST SERVICE AIDE LAB - MICROBIOL OGY ORDERABLES [facility] INSURANCE BILL [address] [place] [address] * SONOGRAM - COMPLETE (08/28/2014 2:54 PM CDT) Anatomical Region Laterality Modality Other 08/28/2014 2:54 PM CDT Narrative 08/28/2014 4:05 PM CDT [facility] PHONE: FAX: Pat. Name: ANGELIKA STINSON Pat. No: [id number] Study Date: 08/28/2014 2:54pm , Age: 07 1985, 29 Pregnancies: 2, Para 1 LMP: 03/29/2014 GA by LMP: 21w5d GA by US: 22w5d GA Selected: 21w5d (LMP) RONNIE: 01/03/2015 Referring MD: JULIA PALMER MD Import Coordinator: Becca Hopper RDMS ICD9: 655.83 CPT4: 99613 Hist/Ind: Echogenic Focus MEASUREMENTS & AGE GROWTH EVALUATION Measurement GA Range Srce %for GA Ratios ----- ---- ------- BPD 5.5 cm 22w6d (80m7q-86p3r) Hadl BPD 79% FL/BPD 0.73 HC 20.8 cm 22w6d (53j9w-15s7o) Hadl HC 85% FL/AC 0.25 AC 16.1 cm 21w2d (89q3h-03y1h) Hadl AC 40% HC/AC 1.29 (1.05 - 1.24* FL 4.0 cm 23w0d (97q3z-99w1l) Hadl FL 82% CI 0.74 (0.70 - 0.86) HL 3.9 cm 23w4d (88p7c-70h0o) Ricci HL 82% GA for sonogram 22w5d (29l6j-30z3z) Weight Estimate: based on (HL,BPD,HC,AC,FL) Avg Weight: [...] <Electronic Signature> 08/28/2014 04:05pm Julia Palmer MD [facility] ORDERABLES Care Teams Coffee Grower Relationship Specialty Start Date End Date Unknown, Provider PCP - General 08/27/16
--- OUTSIDE RECORDS SUMMARY | 2025-01-16 20:34 | XMS_ITS | Referral Summary ---
Author Organization [facility] Address [address] [place] [address] Care Team Providers Care Cork Insulator Helper Name Role Phone Unknown, Provider Primary Care Provider Unavaila ble Source Comments [facility],non-owned Affiliates and Associated Physician Practices is amultiple site organization consisting of ambulatory clinics and hospital sitesin [place], [place], [place] and [place]. This disclosure is being madepursuant to the Care Everywhere program and may not contain all information available regarding this patient. Last updated 18.[facility] Allergies No known active allergies Medications * Be aware that medications may not be up to date on this document. Alwaysverify current medications with the patient. Medication Sig Dispensed Refills Start Date End Date Status Etonogestrel-Ethinyl Estradiol (NUVARING VA) Active fluticasone propionate (FLONASE) 50 MCG/ACT nasal spray [place] 2 sprays into each nostril once daily [...] Comments Blood Pressure 122/74 09/19/2019 10:20 AM FLAT SPRING ASSEMBLER Pulse 84 09/19/2019 10:20 AM FLAT SPRING ASSEMBLER Temperature 36.8 C (98.3 F) 09/19/2019 10:20 AM FLAT SPRING ASSEMBLER Respiratory Rate 16 09/19/2019 10:20 AM FLAT SPRING ASSEMBLER Oxygen Saturation 97% 09/19/2019 10:20 AM FLAT SPRING ASSEMBLER Inhaled Oxygen Concentration - - Weight 77.1 kg (170 lb) 09/19/2019 10:20 AM FLAT SPRING ASSEMBLER Height 182.9 cm (6') 09/19/2019 10:20 AM FLAT SPRING ASSEMBLER Body Mass Index 23.06 09/19/2019 10:20 AM FLAT SPRING ASSEMBLER Plan of Treatment Not on file Care Teams Cork Insulator Helper Relationship Specialty Start Date End Date Unknown, Provider PCP - General 08/27/16
--- OUTSIDE RECORDS SUMMARY | 2025-01-16 20:34 | XMS_ITS | Referral Summary ---
Author Organization [facility] Medical Office Building B Address [address] [place] [address] Care Team Providers Care Production Material Handler Name Role Phone Arturo Andujar MD Primary Care Provider [phone] Allergies No known active allergies Medications NUVARING [...] MRI Assessment & Plan (12/12/2022 2:51 PM SAND CUTTER): Unclear etiology; patient reports reason CC of [...] on file Legal Sex Female 11:40 AM SAND CUTTER Gender Identity Not on file Sexual Orientation Not on file Last Filed Vital Signs Vital Sign Reading Time Taken Comments Blood Pressure 102/72 11/27/2023 9:53 AM SAND CUTTER Pulse 92 11/27/2023 9:53 AM SAND CUTTER Temperature 36.6 C (97.8 F) 11/27/2023 9:53 AM SAND CUTTER Respiratory Rate 18 11/27/2023 9:53 AM SAND CUTTER Oxygen Saturation 98% 11/27/2023 9:53 AM SAND CUTTER Inhaled Oxygen Concentration - - Weight 100.2 kg (221 lb) 11/27/2023 9:53 AM SAND CUTTER Height 182.9 cm (6') 11/27/2023 9:53 AM SAND CUTTER Body Mass Index 29.97 11/27/2023 9:53 AM SAND CUTTER Plan of Treatment Not on file Procedures Procedure Name Priority Date/Time Associated Diagnosis Comments HM PAP SMEAR WITH HPV Routine 09/23/2018 from Last 3 Months or Most Recently Relevant to Health Maintenance Results * HM PAP SMEAR WITH HPV (09/23/2018) Pap smear Normal Historical Provider HEALTH MAINTENANCE Final Result from Last 3 Months or Most Recently Relevant to Health Maintenance Insurance [facility] CHO[facility] PLUS [facility] PL[facility] Care Teams Production Material Handler Relationship Specialty Start Date End Date Arturo [place] [address] PCP - General 07/27/20
[2025-01-16] MEDS: oxyCODONE/ACETAMINOPHEN (*CRX) 5-325 MG TABLET 1 TABLET PO (20:42)
[2025-01-16] MEDS: AMOXICILLIN/CLAVULANATE K 875-125 MG TAB 1 TABLET PO (20:43)
[2025-01-16] MEDS: TETANUS,DIPHTHERIA,AC PERTUSSIS ADULT 0.5 ML (ADACEL) IM (20:43)
== END 2025-01-16 20:55 | disposition home or self-care (01) ==
LOC: CHSED 20:33
PROVIDERS: Emergency Provider Preventive Medicine Aerospace Medicine; PCP Nurse Practitioner Adult Health
DX: S61.552A Open bite of left wrist, initial encounter (principal); S61.051A Open bite of right thumb without damage to nail, initial encounter; Z23 Encounter for immunization; Z87.891 Personal history of nicotine dependence; W54.0XXA Bitten by dog, initial encounter
CPT/HCPCS: 73110; 73130; 90471; 90715; 99283; A9270

== ENCOUNTER 2025-09-09 15:45 | Outpatient (CLI) | payer OTHER, SELFPAY ==
--- NOTE | ~2025-09-09 | MM_ITS ---
EXAMINATION: MM screening volodymyr BI w shivam HISTORY: Screening TECHNIQUE: Craniocaudal and mediolateral oblique 3-D tomosynthesis images were obtained and synthetic 2-D images were generated. CAD analysis was submitted and interpreted. COMPARISON: 06/24/2024 BREAST PARENCHYMAL COMPOSITION: The breasts are heterogeneously dense, which may obscure small masses. FINDINGS: There is no evidence of suspicious mass, calcification, or architectural distortion to suggest malignancy in either breast. IMPRESSION: 1. No mammographic evidence of malignancy. 2. Recommend routine screening mammography in one year. BI-RADS Category 1: Negative Reviewed, dictated and finalized at location B. CANDLE DIPPER
== END 2025-09-09 15:46 | disposition home or self-care (01) ==
PROVIDERS: PCP Nurse Practitioner Adult Health; Visit Provider Obstetrics & Gynecology
DX: Z12.31 Encounter for screening mammogram for malignant neoplasm of breast (principal)
CPT/HCPCS: 77063; 77067